=== PATIENT | male | born 1965 | race Caucasian/White ===

== ENCOUNTER 2016-11-09 16:27 | Inpatient (IN) | payer BC, OTHER ==
[2016-11-09] VITALS (10 sets, daily range): BP systolic 117–136; BP diastolic 75–93; PULSE 71–80; TEMP 36.4–36.7; O2SAT 91–96; BMI 41.0
[~2016-11-09] VITALS: Ht 170.2 cm; Wt 115.6 kg
[2016-11-09] MEDS ORDERED: NiCARDipine HCL INJ 2.5 MG/ML 10 ML AMP ONE (16:37)
[2016-11-09] MEDS ORDERED: MIDAZOLAM HCL 1 MG/ML 2ML VIAL ONE ×2 (16:38→17:21)
[2016-11-09] MEDS ORDERED: HEPARIN SOD (PORCINE) 1000 UNIT/ML 10 ML VIAL ONE ×2 (16:38→17:41)
[2016-11-09] MEDS ORDERED: FENTANYL CITRATE INJ 50 MCG/1 ML 2 ML VIAL ONE ×2 (16:38→17:21)
[2016-11-09] MEDS ORDERED: NITROGLYCERIN/D5W 100MCG/ML 20ML SYR ONE (16:40)
[2016-11-09] MEDS ORDERED: SODIUM CHLORIDE 0.9% 1000ML 1,000 ML IV STA (16:42)
[2016-11-09 16:48] LABS: BASO % 0.2 %; BASO ABS # 0.02 K/uL (0-0.2); COMPLETE YES; EOS % 0.7 %; HEMATOCRIT 48.2 % (42-52); IG% 0.3 %; LYMPH % 17.7 %; LYMPH ABS # 2.22 K/uL (1.2-3.4); MEAN CELL VOLUME 85.3 fL (80-100); MEAN CORPUSCULAR HEMOGLOBIN 29.6 pg (25-34); MEAN CORPUSCULAR HGB CONC 34.6 g/dl (32-36); MEAN PLATELET VOLUME 11.2 fL (7.4-10.4); MONO % 5.6 %; NEUT % 75.5 %; PLATELET COUNT 241 K/uL (130-400); RED BLOOD COUNT 5.65 M/uL (4.7-6.1); WHITE BLOOD COUNT 12.55 K/uL (4.8-10.8)
[2016-11-09] MEDS ORDERED: METO50TA16 PO (16:54)
[2016-11-09] MEDS ORDERED: LISI-725 PO (16:54)
[2016-11-09 16:56] LABS: PROTHROMBIN TIME (PATIENT) 10.3 SECONDS (9.0-12.0)
[2016-11-09 16:57] LABS: ISTAT CREATININE 0.9 mg/dl (0.6-1.3); ISTAT IONIZED CALCIUM 1.18 mmol/l (1.12-1.32)
[2016-11-09 17:04] LABS: BUN/CREATININE RATIO 16.2 (10-20); CALCIUM 9.4 mg/dl (8.5-10.1); CREATININE 1.1 mg/dl (0.60-1.40); MAGNESIUM 2.2 mg/dl (1.8-2.4); POTASSIUM 3.6 mmol/L (3.5-5.1)
[2016-11-09 17:07] LABS: CKMB/CK RATIO 1.2 (0-3.0)
[2016-11-09] MEDS ORDERED: LSN/2025 PO (17:12)
[2016-11-09] MEDS ORDERED: METO-217 PO (17:12)
[2016-11-09] MEDS ORDERED: METO1TAB69 PO (17:12)
[2016-11-09] MEDS ORDERED: ADENOSINE IV SOLN 3 MG/ML 20 ML VIAL ONE (17:15)
--- NOTE | 2016-11-09 17:34 | EMERGENCY ROOM VISIT NOTE ---
History Report prepared by Fito: Greer Plummer Under the Supervision of: Dr. Tigre Wan M.D. First contact with patient: 16:20 Stated Complaint: DIZZY, WEAKNESS, NEAR SYNCOPE History of Present Illness The patient is a 51 year old male who presents to the Emergency Room with complaints of worsening shortness of breath that occurred 3 days prior to arrival. 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 3 days ago he was mowing his lawn when he experienced shortness of breath, weak, lightheaded and had excess diaphoresis. The patient yesterday went to [facility] ED for dizziness and weakness. He had labs drawn and a chest X-Ray. He was discharged home. The patient woke up today with the same shortness of breath and weakness episode. He states that laying down improves his symptoms. The patient notes that standing and movement worsens his symptoms. He has been experiencing palpations today. The patient denies pressure in his chest, jaw pain or arm pain. He states that he has no pain with deep breaths. The patient has a history of hypertension and takes medication daily for it. He does notes a history of blood sugar issues but denies being on any medications for it. Pt denies LOC, headache, fevers, chills, visual changes, neck pain, nausea, vomiting, abdominal pain, back pain, melena, hematochezia, urinary symptoms, numbness, lymphadenopathy, rash, or other complaints. 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 A total of ten systems were reviewed and were otherwise negative. Past Medical & Surgical Medical Problems: (1) Hypertension Family History Family cardiac history Social History Smoking Status: Never Smoker Smokeless Tobacco Use: No Marital Status: Housing Status: lives with family Occupation Status: employed Current/Historical Medications Scheduled Hctz/Lisinopril (Lisinopril/Hctz 20/25 Mg), 1 TAB PO QAM Lisinopril (Zestril), 20 MG PO DAILY Metoprolol Succ (Toprol Xl) (Toprol-Xl ), 100 MG PO DAILY Metoprolol Succinate (Toprol Xl), 50 MG PO DAILY Metoprolol Tartrate (Lopressor) (Lopressor), 50 MG PO BID Physical Exam Vital Signs Date Time Temp Pulse Resp B/P (MAP) Pulse Ox O2 Delivery O2 Flow Rate FiO2 11/09/16 16:50 88 22 158/105 96 11/09/16 16:46 98 Nasal Cannula 3.0 11/09/16 16:37 80 11/09/16 16:31 93 Room Air 11/09/16 16:31 36.7 84 20 158/105 93 Room Air 11/09/16 16:31 93 Room Air Physical Exam GENERAL: Awake, alert, uncomfortable appearing, in no distress HENT: Normocephalic, atraumatic. Oropharynx unremarkable. EYES: Normal conjunctiva. Sclera non-icteric. NECK: Supple. No nuchal rigidity. FROM. No JVD. RESPIRATORY: Clear to auscultation. CARDIAC: Regular rate, normal rhythm. Extremities warm and well perfused. Pulses equal. ABDOMEN: Soft, non-distended. No tenderness to palpation. No rebound or guarding. No masses. RECTAL: Deferred. MUSCULOSKELETAL: Chest examination reveals no tenderness. The back is symmetrical on inspection without obvious abnormality. There is no CVA tenderness to palpation. No joint edema. LOWER EXTREMITIES: Calves are equal size bilaterally and non-tender. No edema. No discoloration. NEURO: Normal sensorium. No sensory or motor deficits noted. SKIN: No rash or jaundice noted. Medical Decision & Procedures Laboratory Results 11/09/16 16:37 Red Blood Count 5.65, Mean Corpuscular Volume 85.3, Mean Corpuscular Hemoglobin 29.6, Mean Corpuscular Hemoglobin Concent 34.6, Mean Platelet Volume 11.2, Neutrophils (%) (Auto) 75.5, Lymphocytes (%) (Auto) 17.7, Monocytes (%) (Auto) 5.6, Eosinophils (%) (Auto) 0.7, Basophils (%) (Auto) 0.2, Neutrophils # (Auto) 9.48, Lymphocytes # (Auto) 2.22, Monocytes # (Auto) 0.70, Eosinophils # (Auto) 0.09, Basophils # (Auto) 0.02 11/09/16 16:37 Test 11/09/16 16:37 11/09/16 16:40 11/09/16 16:42 White Blood Count 12.55 K/uL (4.8-10.8) Red Blood Count 5.65 M/uL (4.7-6.1) Hemoglobin 16.7 g/dL (14.0-18.0) Hematocrit 48.2 % (42-52) Mean Corpuscular Volume 85.3 fL (80-100) Mean Corpuscular Hemoglobin 29.6 pg (25-34) Mean Corpuscular Hemoglobin Concent 34.6 g/dl (32-36) Platelet Count 241 K/uL (130-400) Mean Platelet Volume 11.2 fL (7.4-10.4) Neutrophils (%) (Auto) 75.5 % Lymphocytes (%) (Auto) 17.7 % Monocytes (%) (Auto) 5.6 % Eosinophils (%) (Auto) 0.7 % Basophils (%) (Auto) 0.2 % Neutrophils # (Auto) 9.48 K/uL (1.4-6.5) Lymphocytes # (Auto) 2.22 K/uL (1.2-3.4) Monocytes # (Auto) 0.70 K/uL (0.11-0.59) Eosinophils # (Auto) 0.09 K/uL (0-0.5) Basophils # (Auto) 0.02 K/uL (0-0.2) RDW Standard Deviation 41.1 fL (36.4-46.3) RDW Coefficient of Variation 13.3 % (11.5-14.5) Immature Granulocyte % (Auto) 0.3 % Immature Granulocyte # (Auto) 0.04 K/uL (0.00-0.02) Prothrombin Time 10.3 SECONDS (9.0-12.0) Prothromb Time International Ratio 1.0 (0.9-1.1) Activated Partial Thromboplast Time 25.7 SECONDS (21.0-31.0) Partial Thromboplastin Ratio 1.0 Est Creatinine Clear Calc Drug Dose 102.4 ml/min Estimated GFR () 89.6 Estimated GFR (Non- 77.3 BUN/Creatinine Ratio 16.2 (10-20) Calcium Level 9.4 mg/dl (8.5-10.1) Magnesium Level 2.2 mg/dl (1.8-2.4) Total Bilirubin 0.8 mg/dl (0.2-1) Direct Bilirubin 0.2 mg/dl (0-0.2) Aspartate Amino Transf (AST/SGOT) 25 U/L (15-37) Alanine Aminotransferase (ALT/SGPT) 39 U/L (12-78) Alkaline Phosphatase 105 U/L (45-117) Total Creatine Kinase 130 U/L (39-308) Creatine Kinase MB 1.5 ng/ml (0.5-3.6) Creatine Kinase MB Ratio 1.2 (0-3.0) Total Protein 8.0 gm/dl (6.4-8.2) Albumin 3.7 gm/dl (3.4-5.0) Lipase 226 U/L (73-393) Bedside Troponin I 0.050 ng/ml (0-0.045) Bedside Hemoglobin 17.0 g/dl (14.0-18.0) Bedside Hematocrit 50 % (42-52) Bedside Sodium 138 mEq/L (135-144) Bedside Potassium 3.7 mEq/L (3.3-5.0) Bedside Chloride 99 mEq/L (101-112) Bedside Total CO2 25 mEq/l (24-31) Anion Gap 18.0 mmol/L (16-25) Bedside Blood Urea Nitrogen 19 mg/dl (7-18) Bedside Creatinine 0.9 mg/dl (0.6-1.3) Bedside Glucose (other) 211 mg/dl (70-99) Bedside Ionized Calcium (Helga) 1.18 mmol/l (1.12-1.32) Laboratory results reviewed by me ECG Indication: SOB/dyspnea Rate (beats per minute): 80 Rhythm: normal sinus Findings: T-wave inversion (Lateral), other (biphasic leads 2,3,4) ED Course 1629: The patient was evaluated in room B1. A complete history and physical exam was performed. 1636: Dr. Lopez came to evaluate the patient for heart alert. 1642: Sodium Chloride 1,000 ml @ 999 mls/hr IV 1650: The patient is being taking to the cardiac catheterization technician by Dr. Lopez - Cardiology at this time. 1652: Discussed the patient's case with Dr. Davion BERGERON. The patient will be evaluated for further treatment and disposition. 1722: I gave the patient's [facility] records to Dr. Davion BERGERON. Medical Decision Medication Reconciliation: I attest that I have personally reviewed the patient' s current medication list Blood pressure screening: Patient was found to have an elevated blood pressure and was referred to their primary doctor for recheck and further treatment. Prior records/ancillary studies reviewed. Records obtained from the [facility]. D-dimer was negative. The patient had mild hypokalemia. Patient had an unremarkable chest x-ray. Nursing notes reviewed and agree them. Additional history obtained from EMS. The patient's history was concerning for shortness of breath and ECG changes. Differential diagnosis: Etiologies such as cardiac ischemia, aortic dissection, pulmonary embolism, esophageal rupture, pneumonia, pneumothorax, musculoskeletal, infections, gastrointestinal, as well as others were entertained. Physical examination: Physical exam is as above. ER treatment provided: AsprinGiven prehospital Monitoring Oxygen Diagnostic interpretation: Prehospital ECG was concerning for ST elevation. I did obtain an ECG from the [facility] and the changes were new. That initiated a heart alert. ECG repeated here did reveal sinus rhythm however the patient has biphasic T waves and T-wave inversions anterolaterally. The labs revealed normal chemistries and a mildly elevated troponin by i-STAT and [id number]. Glucose was mildly elevated as well. The patient is a slight leukocytosis. Consultation: A consultation was placed with Dr. Lopez. He promptly arrived in the ER and evaluated the patient and agreed with the assessment of an acute coronary syndrome. The patient was taken emergently to the catheterization laboratory for cardiac intervention. Consults Time Called: 1629 Consulting Physician: Dr. Lopez - Cardiology Returned Call: 1636 Dr. Lopez came to evaluate the patient for heart alert. Additional Consults: Time Called: 1650 Consulted Physician: Dr. Ricardo - [facility] Returned Call: 1652 Additional Comments: Discussed the patient's case. The patient will be evaluated for further treatment and disposition. Impression Primary Impression: Stable burst fracture of eleventh thoracic vertebra Additional Impressions: Myocardial infarction SOB (shortness of breath) Critical Care I have personally spent greater than 30 minutes of critical care time in the direct management of this patient. This includes bedside care, interpretation of diagnostic studies, and testing, discussion with consultants, patient, and other required patient management activities. This 30 minutes is in excess of all separately billable procedures. Scribe Attestation The scribe's documentation has been prepared under my direction and personally reviewed by me in its entirety. I confirm that the note above accurately reflects all work, treatment, procedures, and medical decision making performed by me. Departure Information Dispostion Being Evaluated By Hospitalist Problem Qualifiers
--- NOTE | 2016-11-09 17:44 | History and Physical ---
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 At that time he reported his symptoms of shortness of breath with minimal activity started on 11/06. OSH patient admitted that he had stopped taking lisinopril and metoprolol times the past 6 weeks. A d-dimer was obtained which was slightly elevated= 118, chest x-ray was completed which showed no acute disease. EKG was obtained with signs of tachycardia RA=157 bpm, regular rhythm, normal [place] interval, QRS intervals normal, possible anterior CO although age indeterminate. The patient was transferred to our facility for cardiac catheterization. Patient is being admitted for unstable angina. Labs at our facility indicated troponin equal to 0.050 with EKG findings significant for anterior CO. Patient is now status post cardiac catheterization. There was no intervention required for the patient during cardiac catheterization. Patient was seen in the ICU. He reports he is currently feeling well, denies any chest pain or shortness of breath. He denies any other acute complaints. Past Medical/Surgical History Medical Problems: (1) Hypertension Status: Chronic Morbid obesity, BMI = 44.4 Sleep apnea Congenitally deaf due to rubella exposure in utero Family History Family cardiac history Social History Smoking Status: Never Smoker Alcohol Use: none Drug Use: none Allergies Coded Allergies: No Known Allergies (Unverified , 11/09/16) Home Medications Scheduled Hctz/Lisinopril (Lisinopril/Hctz 20/25 Mg), 1 TAB PO QAM Lisinopril (Zestril), 20 MG PO DAILY Metoprolol Succ (Toprol Xl) (Toprol-Xl ), 100 MG PO DAILY Metoprolol Succinate (Toprol Xl), 50 MG PO DAILY Metoprolol Tartrate (Lopressor) (Lopressor), 50 MG PO BID Review of Systems Constitutional: No fever, sweats or chills Eyes: No diplopia, no worsening or blurred vision ENT: normal hearing, no trouble swallowing Respiratory: No cough, sputum + dyspnea with exertion, does not wear supplemental O2 at baseline. Cardiovascular: + Palpitations & +shortness of breath with exertion for the past 3 days, denies tightness Abdomen: No pain, nausea, vomiting, diarrhea or constipation Musculoskeletal: No joint pain, calf pain, swelling Neurologic: No weakness, numbness/tingling, or balance problems Psychiatric: No anxiety or depression Skin: No rash or itch Physical Exam Vital Signs Date Time Temp Pulse Resp B/P (MAP) Pulse Ox O2 Delivery O2 Flow Rate FiO2 11/09/16 16:50 88 22 158/105 96 11/09/16 16:46 98 Nasal Cannula 3.0 11/09/16 16:37 80 11/09/16 16:31 93 Room Air 11/09/16 16:31 36.7 84 20 158/105 93 Room Air 11/09/16 16:31 93 Room Air General: awake, alert, no apparent distress, morbidly obese Head: Normocephalic, atraumatic ENT: PERRL, EOMI, no pharyngeal exudate, mucous membranes moist, poor dentition Chest: Clear to auscultation, on room air, no adventitious breath sounds Cardiac: Regular rate and rhythm, no murmur, no JVD, normal peripheral pulses, good capillary refill Abdominal: NABS x 4 quadrants, soft, nontender to palpation, no rebound, guarding or tenderness Extremities: Normal inspection, no peripheral edema or erythema, calfs nontender to palpation Psych: Normal mood and affect Neuro: AAO x 3, strength intact bilaterally and related 5/5, no motor deficits, speech is clear, no peripheral sensory deficits Diagnostics Laboratory Results Results Past 24 Hours Test 11/09/16 16:37 11/09/16 16:40 11/09/16 16:42 Range/Units White Blood Count 12.55 4.8-10.8 K/uL Red Blood Count 5.65 4.7-6.1 M/uL Hemoglobin 16.7 14.0-18.0 g/dL Hematocrit 48.2 42-52 % Mean Corpuscular Volume 85.3 80-100 fL Mean Corpuscular Hemoglobin 29.6 25-34 pg Mean Corpuscular Hemoglobin Concent 34.6 32-36 g/dl Platelet Count 241 130-400 K/uL Mean Platelet Volume 11.2 7.4-10.4 fL Neutrophils (%) (Auto) 75.5 % Lymphocytes (%) (Auto) 17.7 % Monocytes (%) (Auto) 5.6 % Eosinophils (%) (Auto) 0.7 % Basophils (%) (Auto) 0.2 % Neutrophils # (Auto) 9.48 1.4-6.5 K/uL Lymphocytes # (Auto) 2.22 1.2-3.4 K/uL Monocytes # (Auto) 0.70 0.11-0.59 K/uL Eosinophils # (Auto) 0.09 0-0.5 K/uL Basophils # (Auto) 0.02 0-0.2 K/uL RDW Standard Deviation 41.1 36.4-46.3 fL RDW Coefficient of Variation 13.3 11.5-14.5 % Immature Granulocyte % (Auto) 0.3 % Immature Granulocyte # (Auto) 0.04 0.00-0.02 K/uL Prothrombin Time 10.3 9.0-12.0 SECONDS Prothromb Time International Ratio 1.0 0.9-1.1 Activated Partial Thromboplast Time 25.7 21.0-31.0 SECONDS Partial Thromboplastin Ratio 1.0 Sodium Level 137 136-145 mmol/L Potassium Level 3.6 3.5-5.1 mmol/L Chloride Level 102 98-107 mmol/L Carbon Dioxide Level 26 21-32 mmol/L Anion Gap 9.0 18.0 16-25 mmol/L Blood Urea Nitrogen 18 7-18 mg/dl Creatinine 1.10 0.60-1.40 mg/dl Est Creatinine Clear Calc Drug Dose 102.4 ml/min Estimated GFR () 89.6 Estimated GFR (Non- 77.3 BUN/Creatinine Ratio 16.2 10-20 Random Glucose 201 70-99 mg/dl Calcium Level 9.4 8.5-10.1 mg/dl Magnesium Level 2.2 1.8-2.4 mg/dl Total Bilirubin 0.8 0.2-1 mg/dl Direct Bilirubin 0.2 0-0.2 mg/dl Aspartate Amino Transf (AST/SGOT) 25 15-37 U/L Alanine Aminotransferase (ALT/SGPT) 39 12-78 U/L Alkaline Phosphatase 105 45-117 U/L Total Creatine Kinase 130 39-308 U/L Creatine Kinase MB 1.5 0.5-3.6 ng/ml Creatine Kinase MB Ratio 1.2 0-3.0 Total Protein 8.0 6.4-8.2 gm/dl Albumin 3.7 3.4-5.0 gm/dl Lipase 226 73-393 U/L Bedside Troponin I 0.050 0-0.045 ng/ml Bedside Hemoglobin 17.0 14.0-18.0 g/dl Bedside Hematocrit 50 42-52 % Bedside Sodium 138 135-144 mEq/L Bedside Potassium 3.7 3.3-5.0 mEq/L Bedside Chloride 99 101-112 mEq/L Bedside Total CO2 25 24-31 mEq/l Bedside Blood Urea Nitrogen 19 7-18 mg/dl Bedside Creatinine 0.9 0.6-1.3 mg/dl Bedside Glucose (other) 211 70-99 mg/dl Bedside Ionized Calcium (Helga) 1.18 1.12-1.32 mmol/l Impression Assessment and Plan This is a 51-year-old male with past medical history of hypertension, obesity, urethral stricture requiring self catheterization twice daily, who presented initially to [facility] with the complaint of shortness of breath on . At that time he reported his symptoms of shortness of breath with minimal activity started on 11/06. SOB on exertion, palpitations Anterior myocardial infarction - Patient is being admitted to the ICU - Transferred from OSH to our facility for unstable angina. - Cardiology consultation - appreciate recs - Initial troponin equal to 0.050 with EKG findings significant for anterior CO. We'll trend cardiac enzymes 2 more sets, expect them to be high with cardiac catheterization so we'll watch for enzymes to peak and then trending downward. - We'll start the patient on metoprolol succinate 50 mg BID, lisinopril 5mg daily, Lasix 20 mg PO QAM - 2-D echo ordered - Spoke with cardiology who reported patient likely has a component of systolic and diastolic dysfunction as seen during cardiac cath. - Daily EKG - PT/OT consult and -Patient is from [place] so would not qualify for a nocturnal oximetry test. Hypertension - Meds adjusted as above Congenitally deaf due to rubella exposure in utero - Hearing aid in place Urethral stricture - Patient requires self-catheterization 2 times daily - Patient reports being noncompliant with his medications, discussion will need to be held with regarding compliance prior to discharge DVT prophylaxis: Teds, SCDs, sub q heparin CODE STATUS: Full code Disposition: Patient from home, discharge when medically stable, likely within 1 -2 days PA Physician Supervision Note: I interviewed and examined the patient. Discussed with Elizabeth Mejia PAC and agree with findings and plan as documented in the note. 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 He was taken emergently to the cardiac catheterization lab but was not found of any significant occlusion coronary arteries. He was found to have a depressed ejection fraction likely some of the symptomatology repolarization changes. The patient likely has undertreated hypertension. Patient is resting comfortably post catheterization in our intensive care unit Vital signs are reviewed was initially hypertensive but this improved Cardiac exam shows regular rate without murmur Lungs are clear Right wrist access point is in good condition with intact neurovascular sensation distally Likely chronic systolic and diastolic heart failure but suboptimal treatment of risk factors Continue metoprolol succinate 50 mg twice a day, lisinopril daily, aspirin daily , simvastatin, the indications are reviewed lifestyle modification. Concern and given a depressed ejection fraction Will start low-dose of furosemide in the morning and reevaluated by cardiology. Documented By: Niko Ricardo Level of Care Critical Care Resuscitation Status FULL RESUSCITATION VTE Prophylaxis Risk Level: Low Given or contraindicated: Unfractionated heparin SQ (Claudette, Maisha Stockings, SCD's
[2016-11-09] MEDS ORDERED: ACETAMINOPHEN 325 MG TAB PO PRN (17:45)
[2016-11-09] MEDS ORDERED: MoRPHine SULFATE 2 MG/ML CARP IV PRN (17:45)
[2016-11-09] MEDS ORDERED: SODIUM CHLORIDE 0.9% 1000ML 250 ML IV PRN (18:08)
[2016-11-09] MEDS ORDERED: ATROPINE SULFATE 0.1 MG/ML 5ML SYR IV PRN (18:15)
[2016-11-09] MEDS ORDERED: NITROGLYCERIN 0.4 MG SL PER TAB CHARGE SL PRN (18:15)
--- NOTE | 2016-11-09 18:23 | Procedure Note ---
Pre-Mod Sedation Assessment General Date of Moderate Sedation: Nov 09, 2016. Vital Signs: Vital Signs Past 12 Hours Date Time Temp Pulse Resp B/P (MAP) Pulse Ox O2 Delivery O2 Flow Rate FiO2 11/09/16 18:00 75 18 147/91 (109) 96 Nasal Cannula 12 11/09/16 17:45 76 18 137/83 (101) 98 Mask 10 11/09/16 16:50 88 22 158/105 96 11/09/16 16:46 98 Nasal Cannula 3.0 11/09/16 16:37 80 11/09/16 16:31 93 Room Air 11/09/16 16:31 36.7 84 20 158/105 93 Room Air 11/09/16 16:31 93 Room Air Review Cardiovascular: regular rate, rhythm, no edema, no gallop, no JVD, no murmur, normal peripheral pulses Abdomen: normal bowel sounds, non tender, soft, no organomegaly, no pulsatile mass Lungs: lungs clear Pre-Sedation Airway Assessment Oral Cavity: Dental Abnormalities Able to Visualize Vocal Cords: No Short Thick Neck: Yes Hx of Sleep Apnea: No Smoking Status: Never Smoker Mallampati Classification: Class III Procedure Planning Contraindications-for Mod Sed: None Yes Notes The planned sedation has been discussed with the patient and consent obtained. I have identified the patient, determined the appropriateness of sedation and have assessed the patient immediately prior to the procedure. All medicine(s) and interventions are by my order.
--- NOTE | 2016-11-09 18:24 | Procedure Note ---
Post-Mod Sedation Assessment General Date of Moderate Sedation Nov 09, 2016. Vital Signs: Vital Signs Past 12 Hours Date Time Temp Pulse Resp B/P (MAP) Pulse Ox O2 Delivery O2 Flow Rate FiO2 11/09/16 18:00 75 18 147/91 (109) 96 Nasal Cannula 12 11/09/16 17:45 76 18 137/83 (101) 98 Mask 10 11/09/16 16:50 88 22 158/105 96 11/09/16 16:46 98 Nasal Cannula 3.0 11/09/16 16:37 80 11/09/16 16:31 93 Room Air 11/09/16 16:31 36.7 84 20 158/105 93 Room Air 11/09/16 16:31 93 Room Air Review - Discharge Criteria Vital Signs Stable: Yes Alert/Oriented/Conversant: Yes Returned to Baseline Mental St: Yes Nausea Absent/Minimal: Yes Pain/Discomfort/Absent/Minimal: Yes Normal/Baseline Respirations: Yes Active Bleeding?: No Pt Received D/C Instructions: N/A Prescriptions Given: None Specific Proced. D/C Criteria Distal Pulses Present (Cardiac: Yes Groin site assessed-Card Cath: N/A Voided Prior To Discharge: N/A Discharged Patients Adult Escort/Transportation: N/A
[2016-11-09] MEDS ORDERED: PATIENT'S ALLERGY INFO NEEDS ENTERED SCH (18:45)
--- NOTE | 2016-11-09 19:31 | Cardiac Catheterization ---
Procedure Note Procedure Date Nov 09, 2016. Pre-Procedure Diagnosis STEMI AUC Score 9 Post-Procedure Diagnosis Moderate CAD Procedure(s) Performed Coronary Angiography, Left Heart Cath, LV Angiography, Fractional Flow [place] [facility] Donor Coordinator Dr. Lopez Director Of Surgery(s) Alyssa Cortez RTChasity Estimated Blood Loss 20 ml Medication(s) Fentanyl, Heparin, Nicardipine, Nitroglycerin, Versed, Lidocaine 1%, Adenosine Summary of Findings Clinical Indications: Acute anterior infarct. Patient with history off longstanding hypertension, dyslipidemia, and hyperglycemia. Noncompliance with medications and low-sodium diet. Three day history of orthopnea, dyspnea with exertion, and dyspnea at rest. Also episodes of palpitations sensed as a rapid heart rate lasting for up to 1 minute. He called EMS today because of complaints of dyspnea at rest as well as lightheadedness, near-syncope, and impending sense of doom. An electrocardiogram performed in the field revealed ST segment elevations V2-V4, inverted T-waves V2-V6. A repeat electrocardiogram performed in the emergency department showed similar findings. He had no complaints of chest pain. He was hypertensive. Physical exam revealed no evidence of congestive heart failure. Because of his earlier symptoms an abnormal electrocardiogram it was felt that an acute anterior myocardial infarction could not be excluded. It was recommended to the patient that he undergo emergency cardiac catheterization and possible coronary intervention if indicated. The procedure, risks, benefits, and alternatives of cardiac catheterization and coronary intervention were discussed with him. Consented to the procedure. He was then brought to the cardiac catheterization laboratory. Catheterization site: 6 Togolese glide sheath right radial artery. Catheters: 6 [place]ese brachial 3.5 diagnostic catheter for right and left coronary angiography. 5 [place]ese pigtail catheter for left heart catheterization and left ventricular angiography. 6 [place]ogolese EBU 3.75 guide catheter for performance of FFR of mid LAD stenosis. FFR protocol: After the pressure wire was calibrated and normalized it was advanced into the LAD with the transducer past the mid LAD stenosis. IFR was measured. Intravenous adenosine was then given a dose of 180 micrograms/ kilogram per minute for 2 minutes. FFR measurements were recorded. Follow-up angiography was then performed with the pressure wire in place and then withdrawn. Left ventricular angiography and left heart catheterization were performed following performance of FFR of the LAD. Hemostasis: Terumo TR band. Complications: None. Findings: Fluoroscopy did not reveal any significant coronary calcifications. The coronary circulation was right dominant. The left main coronary artery was a large caliber vessel without obstructive disease. It gave rise to medium caliber left anterior descending and left circumflex coronary arteries. The proximal LAD had a long 20 percent stenosis. The LAD then gave rise to a very small caliber and short 1st diagonal artery. It then gave rise to a long small caliber 2nd diagonal artery. The 2nd diagonal had 10-20 percent proximal and mid segment stenoses. Immediately following this diagonal the mid LAD had a 30- 50 percent stenosis. In the BENGALI caudal view the stenosis had a lucent appearance. The remainder of the mid and distal LAD had only minor luminal irregularities. The distal LAD terminated at the apex of the heart as a very small caliber vessel. IFR of the mid LAD stenosis was 0.91. FFR of the mid LAD stenosis following administration of intravenous adenosine was 0.85. Follow -up angiography after performance of FFR revealed no evidence of dissection, thrombus, perforation, or distal embolic event. LAD GOLD 3 flow prior to FFR. LAD GOLD 3 flow following FFR. The proximal circumflex had 0-10 percent stenosis. The early mid circumflex gave rise to a bifurcating medium caliber marginal artery which had a 10-20 percent proximal stenosis. Following the origin of the marginal the circumflex terminated in the atrioventricular groove as a small caliber vessel. The right coronary artery was a large caliber vessel. 0-10 percent stenoses in proximal, mid, and distal RCA. Distal RCA gave rise to a medium caliber posterior descending artery. The PDA had a 20 percent mid segment stenosis. the distal RCA gave rise to a long medium caliber bifurcating posterolateral artery. This vessel had a 20 percent stenosis prior to the bifurcation. Left ventricular angiography performed from the 30 degree right anterior oblique projection revealed global hypokinesis of all segments of the left ventricle. No mitral regurgitation. Calculated LV ejection fraction 35 percent. LV angiography had 1st been attempted with a hand injection of contrast dye. This provided inadequate visualization of the left ventricle. LV angiography was then repeated with a power injection of contrast dye. The left ventricular end-diastolic pressure was elevated prior to and following LV angiography. Following the administration of intra arterial nitroglycerin the left ventricular end diastolic pressure decreased. Recommendations and plan: There is no indication for a coronary revascularization procedure. He had GOLD 3 flow in all vessels. FFR of the mid LAD stenosis showed that it was not physiologically significant. Based on a review of his symptoms, medical history, hemodynamics, and left ventricular angiography it is likely that the patient's symptoms in regards to his dyspnea are secondary to acute combined systolic and diastolic heart failure. Suspect he has significant left ventricular hypertrophy. This could be accounting for his electrocardiographic changes. He is also experiencing palpitations. With his decreased LV ejection fraction he would be of increased risk for ventricular arrhythmias. He is also at increased risk for atrial fibrillation. He will be admitted to a monitored bed. Monitor heart rhythm. Serial electrocardiograms and cardiac enzymes. Echocardiography to further assess left ventricular systolic function. Assess left ventricular wall thickness and diastolic function. Assess valvular function. In regards to cardiac medical therapy recommend aspirin, beta-jorge, BENNY inhibitor, diuretic, and statin. Assess hemoglobin A1c ,TSH, and lipid profile. Also for now would use topical nitrates to help decrease ventricular preload. Hemodynamics Rest Ao: 118/82/99 mm Hg Final Ao: 112/75/94 mm Hg LV: 116/27 mm Hg post coronary angiography. 118/21 mm Hg post LV angiography and intra arterial nitroglycerin. Recommendations Medical therapy and/or Counseling Specimens None Radiation Exposure (mGy) 3498 Contrast (mls) 176 ml Visipaque Fluids (cc crystalloids) 100 Drains none Anesthesia Intravenous Versed and fentanyl. Lidocaine 1 percent for local anesthesia. Procedural Complication(s) None Disposition ICU ACC Data Cardiac Status Clinical evaluation leading to the procedure CAD Presntation: STEMI Anginal Classification: CCS IV Heart Failure: NYHA Class: CCS IV Cardiogenic Shock w/in 24Hrs: No Cardiac Arrest w/in 24Hrs: No Imaging studies past 6 months: No Stress studies past 6 months: No Standard Exercise Stress Test: No Stress Echocardiogram: No Stress Testing w/SPECT MPI: No Cardiac CTA: Yes Coronary Anatomy Dominant: Right Left Main (% Stenosis): Normal LAD (% Stenosis): Proximal (20), Mid (30-50), Distal (0-10) D1 (% Stenosis): Normal D2 (% Stenosis): Proximal (10-20), Mid (10-20) Circumflex (% Stenosis): Proximal (0-10) OM1 (% Stenosis): Proximal (10-20) RCA (% Stenosis): Proximal (0-10), Mid (0-10), Distal (0-10) R PDA (% Stenosis): Mid (20) R PL1 (% Stenosis): Mid (20) Left Ventricular Angiography EF (%): 35 Wall Motion: Inferior (Hypokinetic), Apical (Hypokinetic), Anterior ( Hypokinetic) Mitral Regurgitation: None Diagnostic Physician's Name: Salvador Lopez M.D. Status: Emergency Closure Device Percutaneous Entry Location: Radial Closure Device: Radial Band Recommendations: Medical therapy and/or Counseling Lesion Segment Name: mid LAD Stenosis Prior to Rx (%): 50 FFR: Yes Ratio: greater than 0.75% (0.85) Pre-Procedure GOLD Flow: 3 Previously Treated Lesion: No Lesion Complexity: Non-High/Non-C Lesion Length (mm): 5 Thrombus Present: No Bifurcation Lesion: Yes Guidewire Across Lesion: Yes Guidewire: Stenosis Post-Procedure (%): 50 Post-Procedure GOLD Flow: 3 Device(s) Deployed: No Intraprocedure Events Significant Dissection: No Perforation: No
--- NOTE | 2016-11-09 19:45 | DIAGNOSTIC IMAGING REPORT ---
CHEST ONE VIEW PORTABLE CLINICAL HISTORY: PORTABLE dyspnea COMPARISON STUDY: No previous studies for comparison. FINDINGS: Moderate cardiac megaly. Mild prominence pulmonary vasculature. Diaphragms smooth. IMPRESSION: Early congestive heart failure Electronically signed by: Clinton Hughes M.D. 11/09/2016 7:44 PM Dictated Date/Time: 11/09/2016 7:43 PM
[2016-11-09] MEDS: NITROGLYCERIN OINT 2% 1GM PACKET EXT SCH (20:02)
[2016-11-09] MEDS: METOPROLOL SUCC 50MG EXT REL TAB PO SCH (20:05)
[2016-11-09] MEDS ORDERED: GLUCOSE 10 TABS/TUBE PO PRN (20:15)
[2016-11-09] MEDS ORDERED: GLUCAGON FOR INJ 1 MG VIAL SQ PRN (20:15)
[2016-11-09] MEDS ORDERED: DEXTROSE 50% 50 ML SYR IV PRN (20:15)
[2016-11-09] MEDS ORDERED: GLUCOSE 40% GEL 15 GM TUBE PO PRN (20:15)
[2016-11-09] MEDS ORDERED: SIMVASTATIN 40 MG TAB PO SCH (21:00)
[2016-11-09] MEDS: INSULIN ASPART 100 UNITS/ML 3 ML PEN SC SCH (21:03)
[2016-11-10] VITALS (12 sets, daily range): BP systolic 101–161; BP diastolic 63–94; PULSE 61–80; TEMP 36.4–36.6; O2SAT 91–98; BMI 39.8
[2016-11-10] MEDS: NITROGLYCERIN OINT 2% 1GM PACKET EXT SCH ×4 (00:16→17:43)
[2016-11-10 05:45] LABS: BASO % 0.2 %; BASO ABS # 0.02 K/uL (0-0.2); COMPLETE YES; EOS % 1.1 %; HEMATOCRIT 41.8 % (42-52); IG% 0.5 %; LYMPH % 29.5 %; LYMPH ABS # 2.58 K/uL (1.2-3.4); MEAN CELL VOLUME 86.7 fL (80-100); MEAN CORPUSCULAR HGB CONC 33.5 g/dl (32-36); MEAN PLATELET VOLUME 11.1 fL (7.4-10.4); MONO % 6.6 %; NEUT % 62.1 %; PLATELET COUNT 192 K/uL (130-400); RED BLOOD COUNT 4.82 M/uL (4.7-6.1); WHITE BLOOD COUNT 8.74 K/uL (4.8-10.8)
[2016-11-10 06:15] LABS: BUN/CREATININE RATIO 17.3 (10-20); CALCIUM 8.6 mg/dl (8.5-10.1); CREATININE 1.2 mg/dl (0.60-1.40); MAGNESIUM 2.2 mg/dl (1.8-2.4); POTASSIUM 3.5 mmol/L (3.5-5.1)
[2016-11-10 06:31] LABS: ESTIMATED AVERAGE GLUCOSE 260 mg/dl; HA1C FLAG Normal (Normal)
[2016-11-10] MEDS: INSULIN ASPART 100 UNITS/ML 3 ML PEN SC SCH ×4 (06:33→20:38)
[2016-11-10] MEDS ORDERED: LISINOPRIL 5 MG TAB PO SCH (09:00)
[2016-11-10] MEDS ORDERED: ASPIRIN 81 MG ECTAB PO SCH (09:00)
[2016-11-10] MEDS: PANTOprazole SOD 40 MG TAB PO SCH (09:03)
[2016-11-10] MEDS: FUROSEMIDE 20 MG TAB PO SCH (09:03)
[2016-11-10] MEDS: METOPROLOL SUCC 50MG EXT REL TAB PO SCH ×2 (09:03→20:40)
[2016-11-10] MEDS: ASPIRIN 81 MG ECTAB PO SCH (09:04)
[2016-11-10] MEDS ORDERED: PERFLUTREN LIPID MICROSPHERE (DEFINITY) IV ONE (09:05)
[2016-11-10] MEDS ORDERED: POTASSIUM CHLORIDE 10 MEQ TABCR PO STA (09:36)
[2016-11-10 09:38] LABS: URINE APPEARANCE CLOUDY (CLEAR); URINE BILIRUBIN NEG (NEG); URINE COLOR DK YELLOW; URINE NITRITE NEG (NEG); URINE PH 5.5 (4.5-7.5); URINE SPECIFIC GRAVITY 1.039 (1.000-1.030); UROBILINOGEN NEG (NEG)
[2016-11-10 09:42] LABS: REVIEW REQ? YES
[2016-11-10 09:43] LABS: MANUAL MICROSCOPIC REQUIRED? NO
--- NOTE | 2016-11-10 09:48 | Critical Care Progress Note ---
Critical Care Progress Note Date of Service Nov 10, 2016. Critical Care Progress Note Patient discussed on rounds. 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 He is found to be a type 2 diabetic with an A1c of 10.7% Today he feels well, denies any pain. He had an echocardiogram this morning, and is followed by Cardiology. He was placed in the ICU for monitoring overnight. He will be transferred this AM to telemetry. His care was discussed with the hospitalist team. A full consult will not be performed as he had no critical care needs. Please do not hesitate to contact us with any questions or concerns. Medical Instrument Technician Addendum: I was not called about this patient - unclear to me why he was admitted to the ICU s/p cardiac cath early evening yesterday. He as been hemodynamically stable. He is being transferred to telemetry and I will not see him or do a formal consult. Please do not bill him for a critical care consult. Resident Tracking Resident Involvement: Resident Care Provided Care Provided: Adult Hospital Medicine
--- NOTE | 2016-11-10 10:32 | ECHOCARDIOGRAM REPORT ---
*NOTICE TO RECEIVING CONSTITUTION PARTY AGENCY This information is strictly Confidential and protected under [place] law. [place] law prohibits you from making any further disclosure of this information unless further disclosure is expressly permitted by the written consent of the person to whom it pertains or is authorized by law. A general authorization for the release of medical or other information is not sufficient for this purpose. Hospital accepts no responsibility if the information is made available to any other person, INCLUDING THE PATIENT. Interpretation Summary * Name: POOJA MORENO Study Date: 11/10/2016 07:34 AM BP: 109/69 mmHg * Patient Location: [facility] [place] HR: 66 * : 1965 (M/d/yyyy) Gender: Male Height: 67 in * Age: 51 yrs Ethnicity: [place] Weight: 283 lb * Referring Physician: Elizabeth Mejia PA-C * Performed By: Elizabeth Barfield RDCS * * Reason For Study: AMI * BSA: 2.3 m2 * Moderate left ventricular systolic dysfunction. * Severe concentric left ventricular hypertrophy. * Left ventricular diastolic dysfunction. * Moderate left atrial dilatation. * Trace pulmonic and tricuspid regurgitation. * Mild mitral regurgitation. * Mild pulmonary hypertension. * Small pericardial effusion without tamponade. * -- Conclusions -- * There is no diastolic compression of the right ventricle to suggest cardiac tamponade. Procedure Details * A complete two-dimensional transthoracic echocardiogram was performed (2D, M-mode, Doppler and color flow Doppler). * A contrast injection of Definity was performed to improve assessment of LV function. * Contrast was injected into an intravenous site in the left arm. * One vial of Definity ultrasound contrast was diluted in normal saline to a total volume of 10 ml. A total of '2' ml of solution was administered during imaging. * Lot # [id number] of Definity utilized for procedure. * Expiration date NOV 30. * The attending nurse who injected the contrast agent was Yulissa Larose RN. Left Ventricle * The left ventricle is normal in size. * There is severe concentric left ventricular hypertrophy. * Ejection Fraction = 30-35%. * Diastolic dysfunction, Grade II (pseudonormalization pattern). * There is moderate global hypokinesis of the left ventricle. Right Ventricle * The right ventricle is normal in size and function. Atria * The left atrium is moderately dilated. * Right atrial size is normal. * No ASD detected; PFO is not assessed. Mitral Valve * The mitral valve is normal. * There is no mitral valve stenosis. * There is mild mitral regurgitation. Tricuspid Valve * The tricuspid valve is normal. * There is no tricuspid stenosis. * There is trace tricuspid regurgitation. * Right ventricular systolic pressure is elevated at 30-40mmHg. Aortic Valve * The aortic valve is trileaflet. * The aortic valve opens well. * Aortic stenosis is absent. * No aortic regurgitation is present. Pulmonic Valve * The pulmonic valve is not well seen, but is grossly normal. * There is no pulmonic valvular stenosis. * Trace pulmonic valvular regurgitation. Great Vessels * The aortic root is normal size. Pericardium/Pleural * Small pericardial effusion. * There is no diastolic compression of the right ventricle to suggest cardiac tamponade. * There are no echocardiographic indications of cardiac tamponade. Great Vessels * Normal inferior vena cava diameter and respiratory variation suggests normal central venous pressure. MMode 2D Measurements and Calculations IVSd 1.9 cm LVIDd 5.2 cm LVIDs 4.4 cm LVPWd 1.9 cm IVS/LVPW 0.99 FS 15.3 % EDV(Teich) 129.6 ml ESV(Teich) 88.0 ml EF(Teich) 32.1 % EDV(cubed) 140.7 ml ESV(cubed) 85.5 ml EF(cubed) 39.2 % LV mass(C)d 496.9 grams LV mass(C)dI 212.0 grams/m\S\2 CO(Teich) 3.2 l/min CI(Teich) 1.3 l/min/m\S\2 SV(Teich) 41.6 ml SI(Teich) 17.8 ml/m\S\2 CO(cubed) 4.2 l/min CI(cubed) 1.8 l/min/m\S\2 SV(cubed) 55.2 ml SI(cubed) 23.5 ml/m\S\2 Ao root diam 3.2 cm Ao root area 8.1 cm\S\2 ACS 2.3 cm LA dimension 4.9 cm asc Aorta Diam 3.2 cm LA/Ao 1.5 LVOT diam 2.0 cm LVOT area 3.3 cm\S\2 LVAd ap4 52.7 cm\S\2 LVLd ap4 10.1 cm EDV(MOD-sp4) 226.0 ml LVAs ap4 40.2 cm\S\2 LVLs ap4 8.8 cm ESV(MOD-sp4) 148.0 ml EF(MOD-sp4) 34.5 % LVAd ap2 40.7 cm\S\2 LVLd ap2 8.9 cm EDV(MOD-sp2) 153.0 ml LVAs ap2 37.2 cm\S\2 LVLs ap2 9.7 cm CO(MOD-sp4) 5.9 l/min CI(MOD-sp4) 2.5 l/min/m\S\2 SV(MOD-sp4) 78.0 ml SI(MOD-sp4) 33.3 ml/m\S\2 Doppler Measurements and Calculations MV E max magdiel 110.6 cm/sec MV A max magdiel 61.1 cm/sec MV E/A 1.8 MV dec time 0.18 sec Ao V2 max 110.1 cm/sec Ao max PG 4.9 mmHg Ao max PG (full) 2.7 mmHg CRISTIANA(V,A) 2.2 cm\S\2 CRISTIANA(V,D) 2.2 cm\S\2 LV V1 max PG 2.1 mmHg LV V1 max 72.8 cm/sec MR max magdiel 509.5 cm/sec MR max PG 103.9 mmHg MR mean magdiel 383.2 cm/sec MR mean PG 67.9 mmHg MR VTI 153.8 cm PA V2 max 63.4 cm/sec PA max PG 1.6 mmHg PA acc slope 335.1 cm/sec\S\2 PA acc time 0.13 sec TR max magdiel 289.9 cm/sec PA pr(Accel) 20.4 mmHg
[2016-11-10] MEDS: ACETAMINOPHEN 325 MG TAB PO PRN (11:13)
--- NOTE | 2016-11-10 11:33 | Hospitalist Progress Note ---
Hospitalist Progress Note Date of Service Nov 10, 2016. Subjective Pt evaluation today including: conversation w/ patient, conversation w/ family , physical exam, chart review, lab review, review of studies, review of inpatient medication list Patient seen and evaluated. Admitted yesterday for acute onset of SOB mostly BAL x 4 days. 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 He is S/P catheterization without intervention on 11/09 Echo performed today which reveals EF 30-35% and grade II diastolic dysfunction. A1c also 10.7. He reports being a pre-diabetic x 1 year and states he watches his carb intake. He has never been on diabetic medication in the past. He was researching medications and was concerned for metformin and its side effects. Was asking about using broccoli sprout extract as his research reports this is "same as metformin". Expressed limited knowledge in homeopathic approaches and could not recommend this as a suitable treatment modality. 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) Respiratory: + dyspnea on exertion, + dyspnea at rest (improving) Cardiovascular: No chest pain, No palpitations Abdomen: No pain, No nausea, No vomiting, No diarrhea, No constipation Musculoskeletal: No swelling, No calf pain Male : + problem reported (ureteral stricture and self-caths BID) Medications Current Inpatient Medications Medications (Trade) Dose Ordered Sig/Brianda Route Start Time Stop Time Status Last Admin Dose Admin Nitroglycerin (Nitroglycerin 2% Oint) 1 inch Q6 EXT 11/09/16 19:15 12/09/16 19:14 11/10/16 06:20 1 INCH Pantoprazole Sodium (Protonix Tab) 40 mg DAILY PO 11/10/16 09:00 12/10/16 08:59 11/10/16 09:03 40 MG Morphine Sulfate (MoRPHine SULFATE INJ) 2 mg Q2H PRN IV 11/09/16 17:45 11/23/16 17:44 Simvastatin (Zocor Tab) 80 mg HS PO 11/09/16 21:00 12/09/16 20:59 11/09/16 20:05 80 MG Nitroglycerin (Nitrostat Tab) 0.4 mg Q5M PRN SL 11/09/16 18:15 12/09/16 18:14 Acetaminophen (Tylenol Tab) 650 mg Q4H PRN PO 11/09/16 18:15 12/09/16 18:14 11/10/16 11:13 650 MG Sodium Chloride 250 ml @ 999 mls/hr Q16M PRN IV 11/09/16 18:08 12/09/16 18:07 Atropine Sulfate (Atropine Sulfate 0.1MG/Ml Inj) 0.6 mg PRN PRN IV 11/09/16 18:15 12/09/16 18:14 Aspirin (Ecotrin Tab) 81 mg QAM PO 11/10/16 09:00 12/10/16 08:59 11/10/16 09:04 81 MG Metoprolol Succinate (Toprol Xl Tab) 50 mg BID PO 11/09/16 21:00 12/09/16 20:59 11/10/16 09:03 50 MG Lisinopril (Zestril Tab) 5 mg QAM PO 11/10/16 09:00 12/10/16 08:59 11/10/16 09:04 5 MG Furosemide (Lasix Tab) 20 mg QAM PO 11/10/16 09:00 12/10/16 08:59 11/10/16 09:03 20 MG Insulin Aspart (novoLOG ASPART) SLIDING SCALE PARAMETER ACHS SC 11/09/16 21:00 12/09/16 20:59 11/09/16 21:03 2 UNITS Glucose (Glucose 40% Gel) 15-30 GRAMS 15 GRAMS... UD PRN PO 11/09/16 20:15 12/09/16 20:14 Glucose (Glucose Chew Tab) 4-8 Tablets 4 Tabl... UD PRN PO 11/09/16 20:15 12/09/16 20:14 Dextrose (Dextrose 50% 50ML Syringe) 25-50ML OF 50% DW IV FOR... UD PRN IV 11/09/16 20:15 12/09/16 20:14 Glucagon (Glucagon Inj) 1 mg UD PRN SQ 11/09/16 20:15 12/09/16 20:14 Objective Vital Signs Date Time Temp Pulse Resp B/P (MAP) Pulse Ox O2 Delivery O2 Flow Rate FiO2 11/10/16 10:00 36.6 80 13 131/88 (102) 91 Nasal Cannula 2.0 11/10/16 08:00 36.6 75 13 161/94 (116) 96 Nasal Cannula 2.0 11/10/16 08:00 97 Room Air 2.0 11/10/16 06:01 66 12 109/69 (82) 94 Nasal Cannula 2.0 11/10/16 04:01 36.5 65 15 101/69 (80) 95 Nasal Cannula 3.0 11/10/16 04:00 Nasal Cannula 3.0 11/10/16 02:01 64 12 108/67 (81) 93 Nasal Cannula 3.0 11/10/16 00:01 36.5 61 17 104/63 (77) 93 Nasal Cannula 3.0 11/10/16 00:01 Nasal Cannula 3.0 11/09/16 22:01 73 18 121/75 (90) 94 Nasal Cannula 3.0 11/09/16 21:01 73 19 120/81 (94) 96 Nasal Cannula 3.0 11/09/16 20:31 71 15 117/75 (89) 95 Nasal Cannula 3.0 11/09/16 20:01 36.4 76 14 120/77 (91) 96 Nasal Cannula 3.0 11/09/16 20:00 Nasal Cannula 3.0 11/09/16 19:30 76 19 125/81 (96) 95 Nasal Cannula 3.0 11/09/16 19:21 75 20 130/87 (101) 94 Nasal Cannula 3.0 11/09/16 19:11 80 18 133/88 (103) 96 Nasal Cannula 3.0 11/09/16 19:01 75 19 128/93 (105) 95 Nasal Cannula 3.0 11/09/16 18:51 71 16 119/80 (93) 95 Nasal Cannula 3.0 11/09/16 18:32 36.7 75 16 136/92 91 Nasal Cannula 2.0 11/09/16 18:00 75 18 147/91 (109) 96 Nasal Cannula 12 11/09/16 17:45 76 18 137/83 (101) 98 Mask 10 11/09/16 16:50 88 22 158/105 96 11/09/16 16:46 98 Nasal Cannula 3.0 11/09/16 16:37 80 11/09/16 16:31 93 Room Air 11/09/16 16:31 36.7 84 20 158/105 93 Room Air 11/09/16 16:31 93 Room Air Physical Exam General Appearance: WD/WN, no apparent distress, + obese Eyes: sclerae normal ENT: + pertinent finding (hearing adequate with hearing aids present) Neck: supple, no JVD, trachea midline Respiratory/Chest: lungs clear, normal breath sounds, no respiratory distress, no accessory muscle use Cardiovascular: regular rate, rhythm, no gallop, no murmur Abdomen: normal bowel sounds, non tender, soft Extremities: no pedal edema, no calf tenderness Neurologic/Psychiatric: alert, oriented x 3 Skin: normal color Laboratory Results Last 24 Hours Test 11/09/16 16:37 11/09/16 16:40 11/09/16 16:42 11/09/16 17:18 White Blood Count 12.55 K/uL Red Blood Count 5.65 M/uL Hemoglobin 16.7 g/dL Hematocrit 48.2 % Mean Corpuscular Volume 85.3 fL Mean Corpuscular Hemoglobin 29.6 pg Mean Corpuscular Hemoglobin Concent 34.6 g/dl Platelet Count 241 K/uL Mean Platelet Volume 11.2 fL Neutrophils (%) (Auto) 75.5 % Lymphocytes (%) (Auto) 17.7 % Monocytes (%) (Auto) 5.6 % Eosinophils (%) (Auto) 0.7 % Basophils (%) (Auto) 0.2 % Neutrophils # (Auto) 9.48 K/uL Lymphocytes # (Auto) 2.22 K/uL Monocytes # (Auto) 0.70 K/uL Eosinophils # (Auto) 0.09 K/uL Basophils # (Auto) 0.02 K/uL RDW Standard Deviation 41.1 fL RDW Coefficient of Variation 13.3 % Immature Granulocyte % (Auto) 0.3 % Immature Granulocyte # (Auto) 0.04 K/uL Prothrombin Time 10.3 SECONDS Prothromb Time International Ratio 1.0 Activated Partial Thromboplast Time 25.7 SECONDS Partial Thromboplastin Ratio 1.0 Sodium Level 137 mmol/L Potassium Level 3.6 mmol/L Chloride Level 102 mmol/L Carbon Dioxide Level 26 mmol/L Anion Gap 9.0 mmol/L 18.0 mmol/L Blood Urea Nitrogen 18 mg/dl Creatinine 1.10 mg/dl Est Creatinine Clear Calc Drug Dose 102.4 ml/min Estimated GFR () 89.6 Estimated GFR (Non- 77.3 BUN/Creatinine Ratio 16.2 Random Glucose 201 mg/dl Estimated Average Glucose 260 mg/dl Hemoglobin A1c 10.7 % Calcium Level 9.4 mg/dl Magnesium Level 2.2 mg/dl Total Bilirubin 0.8 mg/dl Direct Bilirubin 0.2 mg/dl Aspartate Amino Transf (AST/SGOT) 25 U/L Alanine Aminotransferase (ALT/SGPT) 39 U/L Alkaline Phosphatase 105 U/L Total Creatine Kinase 130 U/L Creatine Kinase MB 1.5 ng/ml Creatine Kinase MB Ratio 1.2 Total Protein 8.0 gm/dl Albumin 3.7 gm/dl Lipase 226 U/L Bedside Troponin I 0.050 ng/ml Bedside Hemoglobin 17.0 g/dl Bedside Hematocrit 50 % Bedside Sodium 138 mEq/L Bedside Potassium 3.7 mEq/L Bedside Chloride 99 mEq/L Bedside Total CO2 25 mEq/l Bedside Blood Urea Nitrogen 19 mg/dl Bedside Creatinine 0.9 mg/dl Bedside Glucose (other) 211 mg/dl Bedside Ionized Calcium (Helga) 1.18 mmol/l Kaolin Activated Coagulation Time 345 SECONDS Test 11/09/16 20:57 11/10/16 00:18 11/10/16 01:10 11/10/16 05:35 Bedside Glucose 218 mg/dl 190 mg/dl Creatine Kinase MB 0.8 ng/ml Creatine Kinase MB Ratio Troponin I 0.211 ng/ml White Blood Count 8.74 K/uL Red Blood Count 4.82 M/uL Hemoglobin 14.0 g/dL Hematocrit 41.8 % Mean Corpuscular Volume 86.7 fL Mean Corpuscular Hemoglobin 29.0 pg Mean Corpuscular Hemoglobin Concent 33.5 g/dl Platelet Count 192 K/uL Mean Platelet Volume 11.1 fL Neutrophils (%) (Auto) 62.1 % Lymphocytes (%) (Auto) 29.5 % Monocytes (%) (Auto) 6.6 % Eosinophils (%) (Auto) 1.1 % Basophils (%) (Auto) 0.2 % Neutrophils # (Auto) 5.42 K/uL Lymphocytes # (Auto) 2.58 K/uL Monocytes # (Auto) 0.58 K/uL Eosinophils # (Auto) 0.10 K/uL Basophils # (Auto) 0.02 K/uL RDW Standard Deviation 43.0 fL RDW Coefficient of Variation 13.6 % Immature Granulocyte % (Auto) 0.5 % Immature Granulocyte # (Auto) 0.04 K/uL Sodium Level 142 mmol/L Potassium Level 3.5 mmol/L Chloride Level 105 mmol/L Carbon Dioxide Level 32 mmol/L Anion Gap 5.0 mmol/L Blood Urea Nitrogen 21 mg/dl Creatinine 1.20 mg/dl Est Creatinine Clear Calc Drug Dose 89.8 ml/min Estimated GFR () 80.7 Estimated GFR (Non- 69.6 BUN/Creatinine Ratio 17.3 Random Glucose 160 mg/dl Calcium Level 8.6 mg/dl Phosphorus Level 4.0 mg/dl Magnesium Level 2.2 mg/dl Test 11/10/16 06:23 11/10/16 09:00 11/10/16 09:32 11/10/16 11:09 Bedside Glucose 165 mg/dl 216 mg/dl Urine Color DK YELLOW Urine Appearance CLOUDY Urine pH 5.5 Urine Specific [place] 1.039 Urine Protein 2+ Urine Glucose (UA) NEG Urine Ketones TRACE Urine Occult Blood NEG Urine Nitrite NEG Urine Bilirubin NEG Urine Urobilinogen NEG Urine Leukocyte Esterase NEG Urine WBC (Auto) 1-5 /hpf Urine RBC (Auto) 0-4 /hpf Urine Hyaline Casts (Auto) 1-5 /lpf Urine Epithelial Cells (Auto) 10-20 /lpf Urine Bacteria (Auto) NEG Urine Crystals CALCIUM OXALATE Stool Occult Blood NEGATIVE Creatine Kinase MB 1.9 ng/ml Creatine Kinase MB Ratio Troponin I 0.282 ng/ml Assessment and Plan This is a 51-year-old male with past medical history of hypertension, obesity, urethral stricture requiring self catheterization twice daily, who presented initially to [facility] with the complaint of shortness of breath on . At that time he reported his symptoms of shortness of breath with minimal activity started on 11/06. BAL with Possible Anterior Myocardial Infarction S/P Cardiac Catheterization: - Troponins mildly elevating from 0.211 to 0.282 - ASA 81 mg daily Acute Mixed Systolic and Diastolic CHF: - Echo - EF 30-35% and grade II diastolic dysfunction - Metoprolol 50 mg BID, Lisinopril 5 mg daily, and Lasix 20 mg daily - Would benefit from adequate diuresis in setting of CHF and CXR findings HTN: - As above New Onset T2DM: A1c 10.7 - Use SSI at this time - Discussed options with patient and was looking up homeopathic remedies which expressed that I could not recommend those options - Question a compliance issue will be present as he did D/C his Lisinopril and Metoprolol for the last 6 weeks -- May benefit from initiating Glyburide 2.5-5 mg daily and have him follow- up with PCP in [place] - would not want to cause hypoglycemia as 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 stay due to: ambulation difficulties Discharge planning: home
--- NOTE | 2016-11-10 12:31 | Cardiology Consultation ---
Cardiology Consultation Date of Service Nov 10, 2016. Cardiology Consultation cardiology consultation: The patient was seen and examined by me yesterday. He was also seen and examined by me this morning is intensive care unit room. The patient presented to the emergency department yesterday by EMS. Developed acute dyspnea at rest associated with lightheadedness, dyspnea, near-syncope, and impending sense of doom. No complaints of chest pain or other anginal type pains. Patient states did that in the 3 days prior to admission he had been experiencing orthopnea. He was sleeping almost upright because of the dyspnea. was also experiencing episodes of dyspnea at rest lasting for several minutes. Was also experiencing new onset dyspnea on exertion walking only several feet. The patient has a longstanding history of hypertension for at least 18 years. This was treated with metoprolol and lisinopril. Admitted to being noncompliant with his medications. He was also noncompliant with a low- sodium diet. On arrival to the emergency department he was not complaining of any chest pain or other anginal type pains. He was complaining of dyspnea. Was found to be hypertensive. His electrocardiogram was abnormal. An electrocardiogram performed in the field revealed ST segment elevations V2-V4, inverted T-waves V2-V6. A repeat electrocardiogram performed in the emergency department showed similar findings. Because of his pre admission symptoms and abnormal electrocardiogram it was felt that an acute anterior myocardial infarction could not be excluded. It was recommended to the patient that he undergo emergency cardiac catheterization and possible coronary intervention if indicated. The procedure, risks, benefits, and alternatives of cardiac catheterization and coronary intervention were discussed with him. He consented to the procedure. He was then brought to the cardiac catheterization laboratory. In addition to the above complaints the patient also complained of episodes of palpitations over the past 3 days. These last up to 1 minute. Sensed as a forceful and rapid heart rate. Associated lightheadedness. No focal motor weakness. No fevers or chills. No abdominal pain or nausea. No symptoms of GI bleeding. Stable nocturia 3 times per night. No history of sleep apnea. No abdominal pain or nausea. Good appetite. History of urethral stricture. He occasionally needs to self-catheterize himself. Over the past few days he has been having episodes of an aching occipital headache. This can last for several minutes at a time. No visual changes. He does not weigh himself daily. He has not noted any increase in his abdominal girth. No peripheral edema. No claudication type symptoms. On my exam of the patient in the emergency department he had no manifestations of congestive heart failure. He was hypertensive. Today the patient states that he has no dyspnea. He continues without any chest pain. Was able to sleep well overnight. No orthopnea or PND. No fevers or chills. No pulmonary, GI, or urinary complaints. No bleeding complaints. Mild tenderness at his right radial catheterization site. No cerebrovascular complaints. No leg pain. No swelling of his legs. Palpitations since admission. Mild postural lightheadedness when he got up to go to the bathroom. This lasted only a few seconds. No syncope. past medical history: Hypertension for least 18 years. Noncompliant with medications and low-sodium diet. Dyslipidemia. Hyperglycemia. Nephrolithiasis. Urethral stricture. Social history: The patient is a . He lives in [place]. 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 Two children who live in [place]. Family history: No family history of premature coronary artery disease. Review of systems: As above. Ten point review of systems otherwise negative. Allergies: No known drug allergies Cardiac catheterization findings: Catheterization site: 6 [place] glide sheath right radial artery. Catheters: 6 [place] brachial 3.5 diagnostic catheter for right and left coronary angiography. 5 [place] pigtail catheter for left heart catheterization and left ventricular angiography. 6 [place] EBU 3.75 guide catheter for performance of FFR of mid LAD stenosis. FFR protocol: After the pressure wire was calibrated and normalized it was advanced into the LAD with the transducer past the mid LAD stenosis. IFR was measured. Intravenous adenosine was then given a dose of 180 micrograms/ kilogram per minute for 2 minutes. FFR measurements were recorded. Follow-up angiography was then performed with the pressure wire in place and then withdrawn. Left ventricular angiography and left heart catheterization were performed following performance of FFR of the LAD. Hemostasis: Terumo TR band. Complications: None. Findings: Fluoroscopy did not reveal any significant coronary calcifications. The coronary circulation was right dominant. The left main coronary artery was a large caliber vessel without obstructive disease. It gave rise to medium caliber left anterior descending and left circumflex coronary arteries. The proximal LAD had a long 20 percent stenosis. The LAD then gave rise to a very small caliber and short 1st diagonal artery. It then gave rise to a long small caliber 2nd diagonal artery. The 2nd diagonal had 10-20 percent proximal and mid segment stenoses. Immediately following this diagonal the mid LAD had a 30- 50 percent stenosis. In the [place] caudal view the stenosis had a lucent appearance. The remainder of the mid and distal LAD had only minor luminal irregularities. The distal LAD terminated at the apex of the heart as a very small caliber vessel. IFR of the mid LAD stenosis was 0.91. FFR of the mid LAD stenosis following administration of intravenous adenosine was 0.85. Follow -up angiography after performance of FFR revealed no evidence of dissection, thrombus, perforation, or distal embolic event. LAD GOLD 3 flow prior to FFR. LAD GOLD 3 flow following FFR. The proximal circumflex had 0-10 percent stenosis. The early mid circumflex gave rise to a bifurcating medium caliber marginal artery which had a 10-20 percent proximal stenosis. Following the origin of the marginal the circumflex terminated in the atrioventricular groove as a small caliber vessel. The right coronary artery was a large caliber vessel. 0-10 percent stenoses in proximal, mid, and distal RCA. Distal RCA gave rise to a medium caliber posterior descending artery. The PDA had a 20 percent mid segment stenosis. the distal RCA gave rise to a long medium caliber bifurcating posterolateral artery. This vessel had a 20 percent stenosis prior to the bifurcation. Left ventricular angiography performed from the 30 degree right anterior oblique projection revealed global hypokinesis of all segments of the left ventricle. No mitral regurgitation. Calculated LV ejection fraction 35 percent. LV angiography had 1st been attempted with a hand injection of contrast dye. This provided inadequate visualization of the left ventricle. LV angiography was then repeated with a power injection of contrast dye. The left ventricular end-diastolic pressure was elevated prior to and following LV angiography. Following the administration of intra arterial nitroglycerin the left ventricular end diastolic pressure decreased. Current medications: Pantoprazole 40 milligrams p.o. daily, aspirin 81 milligrams daily, lisinopril 5 milligrams daily, furosemide 20 milligrams daily , simvastatin 80 milligrams daily, metoprolol succinate ER 50 milligrams b.i.d. , sliding-scale insulin, nitroglycerin ointment 1 inch q.6 hours. Physical exam today shows the patient to be in no distress. Vital signs this morning with oral temperature 36.6. Pulse 80. Blood pressure 131/88. Pulse oximetry 91 percent. Head: Normal. Eyes: Pupils equal and round. Anicteric. Conjunctiva normal. No xanthelasma. Neck: No jugular venous distention. Carotids 2/2 bilaterally. Normal upstroke. No bruits. Lungs: Normal respiratory effort. Decreased breath sounds at the bases. Scant bibasilar rales. No wheezes. Heart: PMI not palpable. No lifts or heaves. Regular rate and rhythm. S1-S2 normal. No S3 or S4. 2/6 systolic murmur at the apex. No diastolic murmur or rub. Abdomen: Soft. Nontender. No palpable masses or organomegaly. No Bruits. Normal bowel sounds. Extremities: Right radial catheterization site without bleeding. Right radial pulse strongly palpable. No evidence of arterial insufficiency in right hand. No Pretibial edema or calf tenderness. No cyanosis or clubbing. Pulses: Distal pulses all extremities palpable. Neurologic: Alert and oriented x3. Motor grossly intact. Psychiatric: Affect is normal. Chest x-ray yesterday revealed increased heart size. Pulmonary vascular congestion and increased interstitial markings. Electrocardiogram today with sinus rhythm, slight ST elevation in V2-V4, left ventricular hypertrophy, T- wave inversion in 1, aVL, V2-V6. Echocardiogram today with severe left ventricular hypertrophy. Moderate global hypokinesis of the left ventricle. LV ejection fraction 35 percent. Mild mitral regurgitation. Trace tricuspid and pulmonic regurgitation. Mild pulmonary hypertension. Normal right ventricular systolic function. Moderate left atrial dilatation. Small pericardial effusion without evidence of cardiac tamponade. INR yesterday 1.0. PTT 25.7. Peak troponin I thus far 0.282. Metabolic profile today with sodium 142, chloride 105, potassium 3.5, carbon dioxide 32, BUN 21, creatinine 1.2, random glucose 160. Magnesium 2.2. Hemoglobin 14.0, hematocrit 41.8, platelet count 192. Hemoglobin A1c is 10.7. Lipid profile has not as yet been performed on this admission. Assessment: 1. Acute combined systolic and diastolic heart failure. 2. Moderate left ventricular systolic dysfunction. Severe LVH. Suspect hypertensive cardiomyopathy. 3. Hypertension, dyslipidemia, and diabetes mellitus. 4. Noncompliance with medications and diet. 5. Cardiac catheterization yesterday with moderate mid LAD stenosis. Subsequent FFR measurement of the stenosis showed it to not be physiologically significant. 6. No vascular complications right radial catheterization site. 7. Evidence of pulmonary vascular congestion on exam today. 8. Hypertension. Blood pressure elevated today. 9. Complaint of palpitations at the time of admission. No complaint of palpitations since admission. Monitor history since admission reviewed by me. No arrhythmias noted. 10. No cerebrovascular or peripheral vascular complaints. 11. Normal right ventricular systolic function on echo today. No evidence on exam of deep venous thrombosis. Do not suspect an acute pulmonary embolus contributing to his current clinical condition. His symptoms at the time of presentation were consistent with new onset congestive heart failure. 12. Dyslipidemia. Lipid profile not checked on this admission as yet. He was not on any medications for dyslipidemia at the time of admission. Recommendations: 1. Increase lisinopril dose to 10 milligrams daily. 2. Continue metoprolol succinate and aspirin. 3. Discontinue simvastatin 80 milligrams daily. This higher dose of simvastatin is associated with increased adverse effects. In light of his coronary artery disease and diabetes a maximum dose of atorvastatin 80 milligrams or rosuvastatin 40 milligrams is indicated. 3. Management of diabetes mellitus by the hospitalist service. 4. The patient will need close follow-up on returns to [place]. If his LV function does not improve on maximum doses of beta-jorge and BENNY-inhibitor therapy consideration would need to be given to insertion of an ICD. 5. The patient should be given a complete copy of his hospital chart at the time of discharge. Should also be given disc containing his cardiac catheterization images, echo images, and chest x-ray. 6. 2 grams sodium per day diet. Low saturated fat diet. Diabetic diet. Thank you for asking me to see this patient in Cardiology consultation.
[2016-11-10 13:09] LABS: CHOLESTEROL/HDL RATIO 5.1
[2016-11-11] VITALS (9 sets, daily range): BP systolic 113–168; BP diastolic 67–115; PULSE 70–81; TEMP 36.4–36.8; O2SAT 92–99; Ht 170.2 cm; Wt 115.6 kg
[2016-11-11] MEDS: NITROGLYCERIN OINT 2% 1GM PACKET EXT SCH ×5 (00:16→23:18)
[2016-11-11 05:41] LABS: BASO % 0.2 %; BASO ABS # 0.02 K/uL (0-0.2); COMPLETE YES; EOS % 1.7 %; HEMATOCRIT 42.4 % (42-52); IG% 0.5 %; LYMPH % 21.6 %; LYMPH ABS # 2.05 K/uL (1.2-3.4); MEAN CELL VOLUME 86.9 fL (80-100); MEAN CORPUSCULAR HEMOGLOBIN 28.7 pg (25-34); MEAN PLATELET VOLUME 11.6 fL (7.4-10.4); MONO % 9.8 %; NEUT % 66.2 %; PLATELET COUNT 184 K/uL (130-400); RED BLOOD COUNT 4.88 M/uL (4.7-6.1); WHITE BLOOD COUNT 9.47 K/uL (4.8-10.8)
[2016-11-11 06:08] LABS: BUN/CREATININE RATIO 16.1 (10-20); CREATININE 1.1 mg/dl (0.60-1.40); MAGNESIUM 2.2 mg/dl (1.8-2.4); POTASSIUM 3.8 mmol/L (3.5-5.1)
[2016-11-11 06:09] LABS: PHOSPHORUS 4.5 mg/dl (2.5-4.9)
[2016-11-11 07:01] LABS: CALCIUM 8.9 mg/dl (8.5-10.1)
[2016-11-11] MEDS: LISINOPRIL 5 MG TAB PO SCH (07:39)
[2016-11-11] MEDS: FUROSEMIDE 20 MG TAB PO SCH (07:40)
[2016-11-11] MEDS: PANTOprazole SOD 40 MG TAB PO SCH (07:40)
[2016-11-11] MEDS: METOPROLOL SUCC 50MG EXT REL TAB PO SCH ×2 (07:40→20:33)
[2016-11-11] MEDS: ATORVASTATIN 40 MG TAB PO SCH (07:41)
[2016-11-11] MEDS: ASPIRIN 81 MG ECTAB PO SCH (07:41)
[2016-11-11] MEDS: INSULIN ASPART 100 UNITS/ML 3 ML PEN SC SCH ×4 (08:38→20:27)
[2016-11-11] MEDS ORDERED: FUROSEMIDE INJ 40 MG in SYRINGE 0 ML IV ONE (09:30)
[2016-11-11] MEDS ORDERED: LISINOPRIL 10 MG TAB PO ONE (09:30)
--- NOTE | 2016-11-11 12:39 | Hospitalist Progress Note ---
Hospitalist Progress Note Date of Service Nov 11, 2016. Subjective Pt evaluation today including: conversation w/ patient, physical exam, chart review, lab review, review of studies, review of inpatient medication list Patient seen and evaluated. No tele events overnight. Patient reporting improvement in breathing and currently on RA. Received IV Lasix and reporting frequent urination. Is in agreement to start oral diabetic medications. Due to insurance he may have issues obtaining prescriptions in [place]. Did discuss medication on the $4 list which the medications we would initiate are available. He is in agreement to start these medications. 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 No pain at catheterization arm. Does report chronic numbness/tingling of R digit tips. States his 5th finger tip had new onset numbness/tingling but denies extension up arm. -- Pulses are 2+ in radial and ulnar vessels. Cap refill is immediate Constitutional: No fever, No chills Eyes: No worsening of vision ENT: No nasal symptoms, No sore throat, No trouble swallowing Respiratory: + dyspnea on exertion, No cough, No dyspnea at rest Cardiovascular: No chest pain, No palpitations Abdomen: No pain, No nausea, No vomiting, No diarrhea, No constipation Musculoskeletal: No swelling, No calf pain Male : + urinary frequency, No dysuria Neurologic: + numbness/tingling (R digit tips) Skin: No rash Medications Current Inpatient Medications Medications (Trade) Dose Ordered Sig/Brianda Route Start Time Stop Time Status Last Admin Dose Admin Nitroglycerin (Nitroglycerin 2% Oint) 1 inch Q6 EXT 11/09/16 19:15 12/09/16 19:14 11/11/16 06:39 1 INCH Pantoprazole Sodium (Protonix Tab) 40 mg DAILY PO 11/10/16 09:00 12/10/16 08:59 11/11/16 07:40 40 MG Morphine Sulfate (MoRPHine SULFATE INJ) 2 mg Q2H PRN IV 11/09/16 17:45 11/23/16 17:44 Nitroglycerin (Nitrostat Tab) 0.4 mg Q5M PRN SL 11/09/16 18:15 12/09/16 18:14 Acetaminophen (Tylenol Tab) 650 mg Q4H PRN PO 11/09/16 18:15 12/09/16 18:14 11/10/16 11:13 650 MG Sodium Chloride 250 ml @ 999 mls/hr Q16M PRN IV 11/09/16 18:08 12/09/16 18:07 Atropine Sulfate (Atropine Sulfate 0.1MG/Ml Inj) 0.6 mg PRN PRN IV 11/09/16 18:15 12/09/16 18:14 Aspirin (Ecotrin Tab) 81 mg QAM PO 11/10/16 09:00 12/10/16 08:59 11/11/16 07:41 81 MG Metoprolol Succinate (Toprol Xl Tab) 50 mg BID PO 11/09/16 21:00 12/09/16 20:59 11/11/16 07:40 50 MG Furosemide (Lasix Tab) 20 mg QAM PO 11/10/16 09:00 12/10/16 08:59 11/11/16 07:40 20 MG Insulin Aspart (novoLOG ASPART) SLIDING SCALE PARAMETER ACHS SC 11/09/16 21:00 12/09/16 20:59 11/11/16 08:38 1 UNITS Glucose (Glucose 40% Gel) 15-30 GRAMS 15 GRAMS... UD PRN PO 11/09/16 20:15 12/09/16 20:14 Glucose (Glucose Chew Tab) 4-8 Tablets 4 Tabl... UD PRN PO 11/09/16 20:15 12/09/16 20:14 Dextrose (Dextrose 50% 50ML Syringe) 25-50ML OF 50% DW IV FOR... UD PRN IV 11/09/16 20:15 12/09/16 20:14 Glucagon (Glucagon Inj) 1 mg UD PRN SQ 11/09/16 20:15 12/09/16 20:14 Lisinopril (Zestril Tab) 10 mg QAM PO 11/11/16 09:00 12/10/16 08:59 11/11/16 07:39 10 MG Atorvastatin Calcium (Lipitor Tab) 80 mg QAM PO 11/11/16 09:00 12/11/16 08:59 11/11/16 07:41 80 MG Metformin HCl (Glucophage Tab) 500 mg BIDM PO 11/11/16 16:45 12/11/16 16:44 Thiamine HCl (Vitamin B-1 Tab) 100 mg QAM PO 11/12/16 09:00 12/12/16 08:59 Objective Vital Signs Date Time Temp Pulse Resp B/P (MAP) Pulse Ox O2 Delivery O2 Flow Rate FiO2 11/11/16 12:00 Nasal Cannula 11/11/16 11:57 36.6 81 18 133/78 (96) 95 11/11/16 08:47 166/104 (124) 11/11/16 08:00 Nasal Cannula 11/11/16 07:12 77 18 150/107 (121) 98 Nasal Cannula 2.0 11/11/16 07:11 36.4 81 18 168/115 (132) 99 Nasal Cannula 2.0 11/11/16 04:13 36.8 74 18 122/83 (96) 96 Nasal Cannula 2.0 11/11/16 04:00 Nasal Cannula 2.0 11/10/16 23:59 Nasal Cannula 2.0 11/10/16 23:55 36.4 74 18 112/72 (85) 98 Nasal Cannula 11/10/16 20:00 94 Room Air 11/10/16 19:07 36.6 76 16 148/90 (109) 97 Nasal Cannula 2.0 11/10/16 16:00 94 Room Air 11/10/16 15:47 36.5 75 16 135/73 (93) 94 Room Air 2.0 Physical Exam General Appearance: WD/WN, no apparent distress, + obese Eyes: sclerae normal ENT: hearing grossly normal (with hearing aids) Neck: supple, no JVD, trachea midline Respiratory/Chest: normal breath sounds, no respiratory distress, no accessory muscle use, + crackles (minimal in bases bilat) Cardiovascular: regular rate, rhythm, no gallop, no murmur Abdomen: normal bowel sounds, non tender, soft Extremities: no pedal edema, no calf tenderness, + pertinent finding (2+ pulses in radial and ulnar at site of cardiac cath; adequate cap refill) Neurologic/Psychiatric: alert, oriented x 3 Skin: normal color, warm/dry Laboratory Results Last 24 Hours Test 11/10/16 16:19 11/10/16 20:36 11/11/16 05:08 11/11/16 06:55 Bedside Glucose 147 mg/dl 122 mg/dl 165 mg/dl White Blood Count 9.47 K/uL Red Blood Count 4.88 M/uL Hemoglobin 14.0 g/dL Hematocrit 42.4 % Mean Corpuscular Volume 86.9 fL Mean Corpuscular Hemoglobin 28.7 pg Mean Corpuscular Hemoglobin Concent 33.0 g/dl Platelet Count 184 K/uL Mean Platelet Volume 11.6 fL Neutrophils (%) (Auto) 66.2 % Lymphocytes (%) (Auto) 21.6 % Monocytes (%) (Auto) 9.8 % Eosinophils (%) (Auto) 1.7 % Basophils (%) (Auto) 0.2 % Neutrophils # (Auto) 6.26 K/uL Lymphocytes # (Auto) 2.05 K/uL Monocytes # (Auto) 0.93 K/uL Eosinophils # (Auto) 0.16 K/uL Basophils # (Auto) 0.02 K/uL RDW Standard Deviation 42.7 fL RDW Coefficient of Variation 13.5 % Immature Granulocyte % (Auto) 0.5 % Immature Granulocyte # (Auto) 0.05 K/uL Sodium Level 144 mmol/L Potassium Level 3.8 mmol/L Chloride Level 109 mmol/L Carbon Dioxide Level 29 mmol/L Anion Gap 6.0 mmol/L Blood Urea Nitrogen 18 mg/dl Creatinine 1.10 mg/dl Est Creatinine Clear Calc Drug Dose 96.5 ml/min Estimated GFR () 89.6 Estimated GFR (Non- 77.3 BUN/Creatinine Ratio 16.1 Random Glucose 146 mg/dl Calcium Level 8.9 mg/dl Phosphorus Level 4.5 mg/dl Magnesium Level 2.2 mg/dl Test 11/11/16 11:15 Bedside Glucose 200 mg/dl Assessment and Plan This is a 51-year-old male with past medical history of hypertension, obesity, urethral stricture requiring self catheterization twice daily, who presented initially to [facility] with the complaint of shortness of breath on . At that time he reported his symptoms of shortness of breath with minimal activity started on 11/06. BAL with NSTEMI of Anterior Myocardial Infarction S/P Cardiac Catheterization: - No intervention necessary - ASA 81 mg daily Acute Mixed Systolic and Diastolic CHF: - Echo - EF 30-35% and grade II diastolic dysfunction - Metoprolol 50 mg BID, Lisinopril 10 mg daily, and Lasix 20 mg daily - Atorvastatin 80 mg daily - Cardiology following - recommendations reviewed - adjusted medications as listed above -- Given Lasix IV x 1 dose today - patient is beginning to diurese HTN: - As above New Onset T2DM: A1c 10.7 - Use SSI at this time and add Metformin 500 mg BID - Conflict with insurance and coverage and discussed $4 list of medications and will provide coverage until he gets back to [place] - Reiterated importance of medication compliance with DM and cardiac medications and he agrees Urethral Stricture with Intermittent Straight Cath BID: - States he takes HCTZ for this and does report compliance with this medication Code Status: FULL RESUSCITATION 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 -- Will likely need establishment with a [employer] Developer in [place] and will defer to patient and PCP - Employer to provide a ride for patient to [place] tomorrow - will continue to diurese and monitor on RA and likely D/C tomorrow Discharge planning: home
[2016-11-11] MEDS: ACETAMINOPHEN 325 MG TAB PO PRN (13:20)
[2016-11-11] MEDS: METFORMIN HCL 500 MG TAB PO SCH (17:25)
--- NOTE | 2016-11-11 18:48 | Cardiology Progress Note ---
Cardiology Progress Note Date of Service Nov 11, 2016. Cardiology Progress Note Cardiology progress note November 11, 2016. The patient was seen and examined by me this morning in the telemetry unit. The patient states that this morning he developed dyspnea. He feels the same as he did at the time of admission. Denies any chest pain. No palpitations. Did have sensation of lightheadedness when he walk from the bed to the commode. He had no orthopnea overnight. He denies any abdominal pain or nausea. No fevers or chills. No cough. No wheezing. No complaints of leg pain. No pain at his right radial catheterization site today. Intake and output yesterday 1055/1000. Vital signs this morning with pulse 77. Blood pressure taken by me 134/98. Pulse oximetry on supplemental nasal cannula oxygen 96 percent. Physical exam shows him to be mildly dyspneic. Neck: No obvious jugular venous distention. Carotid arteries 2/2 bilaterally. Normal upstroke. Lungs: Decreased breath sounds at both bases. Bibasilar rales. No rhonchi or wheezing.: Regular rate and rhythm. S1-S2 normal. No S3 or S4. No diastolic murmur or rub. 2/6 systolic murmur at apex. Abdomen: Soft. Nontender. No palpable masses or organomegaly. No bruits. Normal bowel sounds. Extremities: Right radial catheterization site without bleeding or hematoma. Right radial pulse strongly palpable. Arterial insufficiency in right hand. No pretibial edema. No cyanosis or clubbing. Neurologic: Alert and oriented x3. Motor grossly intact. Psychiatric: Affect is apprehensive. Medications this morning were lisinopril 10 milligrams daily a.m. (he was given additional 10 milligrams this morning), atorvastatin 80 milligrams daily, pantoprazole 40 milligrams daily, aspirin 81 milligrams daily, furosemide 20 milligrams p.o. daily, metoprolol succinate ER 50 milligrams b.i.d., NovoLog sliding scale insulin, nitroglycerin ointment 1 inch q.6 hours, and several p.r.n. medications. Allergies: No known drug allergies. Labs today with sodium 144, potassium 3.8, chloride 109, carbon dioxide 29, BUN 18, creatinine 1.10, magnesium 2.2. Hemoglobin 14.0, hematocrit 42.4, platelet count 184. Electrocardiogram today with normal sinus rhythm, borderline voltage for LVH, T-wave inversions 1, aVL, V3-V6 consistent with LVH and/or ischemia. Assessment: 1. Admission with dyspnea at rest. Devine to be secondary to acute combined systolic and diastolic heart failure. Echocardiogram on this admission with moderate LV systolic dysfunction. Severe left ventricular hypertrophy. 2. No significant diuresis since admission. Increased dyspnea this morning. Evidence of pulmonary vascular congestion on exam this morning. Despite the dyspnea his oxygen saturation on supplemental nasal cannula oxygen is good. 3. Moderate mid LAD stenosis on emergency cardiac catheterization November 09, 2016. FFR measurement across this lesion should be not physiologically significant. 4. Severe hypertension. 5. Diabetes mellitus. Markedly elevated hemoglobin A1c. He was on medical therapy for his diabetes at the time of admission. 6 Dyslipidemia. He was on no medical therapy for dyslipidemia time of admission. 7. Complaints of palpitations prior to admission. No palpitations since admission. No significant arrhythmia is noted on monitoring. Monitor over the past 24 hours of sinus rhythm with occasional premature ventricular beat. 8. Mildly elevated troponin I. Suspect secondary to demand ischemia. Was markedly hypertensive on admission. Has severe LVH. 9. No vascular complications right radial catheterization site. Recommendations: 1. Intravenous furosemide 40 milligrams IV this morning. 2. Increase daily oral furosemide to 40 milligrams daily. 3. Increase lisinopril to 20 milligrams daily. 4. Continue aspirin, atorvastatin, and metoprolol. 5. Reassess renal function and potassium in a.m.. Consider adding spironolactone to medical regimen based on tomorrow's labs. 6. 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 Should be given a complete copy of the records from this admission including images of his chest x-ray, echo, and cardiac catheterization. 7. If his LV systolic function does not improve with maximal medical therapy consideration should be given in the future to implantation of an ICD. This echocardiogram would need to be performed when he returns to [place]. decision for implantation of an ICD would be based upon results of the repeat echo and recommendations of his [place] physicians.
[2016-11-12] VITALS (7 sets, daily range): BP systolic 113–142; BP diastolic 77–90; PULSE 73–84; TEMP 36.6–36.7; O2SAT 92–95
[2016-11-12] MEDS: ACETAMINOPHEN 325 MG TAB PO PRN (01:03)
[2016-11-12] MEDS: NITROGLYCERIN OINT 2% 1GM PACKET EXT SCH (05:42)
[2016-11-12 07:00] LABS: BASO % 0.2 %; BASO ABS # 0.02 K/uL (0-0.2); COMPLETE YES; EOS % 1.1 %; HEMATOCRIT 44.7 % (42-52); IG% 0.4 %; LYMPH % 20.2 %; MEAN CELL VOLUME 86.6 fL (80-100); MEAN CORPUSCULAR HEMOGLOBIN 29.7 pg (25-34); MEAN CORPUSCULAR HGB CONC 34.2 g/dl (32-36); MEAN PLATELET VOLUME 12.1 fL (7.4-10.4); MONO % 8.3 %; NEUT % 69.8 %; PLATELET COUNT 221 K/uL (130-400); RED BLOOD COUNT 5.16 M/uL (4.7-6.1); WHITE BLOOD COUNT 9.91 K/uL (4.8-10.8)
[2016-11-12 07:36] LABS: CALCIUM 9.6 mg/dl (8.5-10.1)
[2016-11-12 07:38] LABS: BUN/CREATININE RATIO 17.1 (10-20); CREATININE 1.3 mg/dl (0.60-1.40); MAGNESIUM 2.3 mg/dl (1.8-2.4); PHOSPHORUS 4.1 mg/dl (2.5-4.9); POTASSIUM 3.3 mmol/L (3.5-5.1)
[2016-11-12] MEDS: ASPIRIN 81 MG ECTAB PO SCH (07:54)
[2016-11-12] MEDS: METFORMIN HCL 500 MG TAB PO SCH ×2 (07:54→17:03)
[2016-11-12] MEDS: METOPROLOL SUCC 50MG EXT REL TAB PO SCH ×2 (07:54→20:51)
[2016-11-12] MEDS: FUROSEMIDE 20 MG TAB PO SCH (07:54)
[2016-11-12] MEDS: THIAMINE HCL 100 MG TAB PO SCH (07:54)
[2016-11-12] MEDS: ATORVASTATIN 40 MG TAB PO SCH (07:54)
[2016-11-12] MEDS: PANTOprazole SOD 40 MG TAB PO SCH (07:54)
[2016-11-12] MEDS: LISINOPRIL 5 MG TAB PO SCH (07:55)
[2016-11-12] MEDS: INSULIN ASPART 100 UNITS/ML 3 ML PEN SC SCH ×4 (08:02→20:50)
[2016-11-12] MEDS ORDERED: POTASSIUM CHLORIDE 10 MEQ TABCR PO ONE (08:30)
[2016-11-12] MEDS ORDERED: SPIRONOLACTONE 25 MG TAB PO ONE ×2 (09:15→10:00)
--- NOTE | 2016-11-12 10:03 | Cardiology Progress Note ---
Cardiology Progress Note Date of Service Nov 12, 2016. Cardiology Progress Note The patient was seen and examined by me this morning on the medical unit. He states that after diuresis yesterday morning he had resolution of his dyspnea. No further complaints of dyspnea since yesterday morning. Orthopnea or PND. No palpitations or syncope. Mild postural lightheadedness this morning when he arose from bed to go to the bathroom. This was a brief duration. No associated symptoms. No pain in his right radial catheterization site. No right hand pain. No GI complaints. No bleeding complaints. No pulmonary or urinary complaints. No cerebrovascular or peripheral vascular complaints. Medications this morning were furosemide 20 milligrams daily, thiamine 100 milligrams daily, metformin 500 milligrams b.i.d., lisinopril 10 milligrams daily, atorvastatin 80 milligrams daily, pantoprazole 40 milligrams daily, aspirin 81 milligrams daily, metoprolol succinate ER 50 milligrams b.i.d.. He had been on nitroglycerin ointment 1 inch q.6 hours. This has been ordered to be discontinued. Patient still has nitroglycerin ointment in place. Intake and output yesterday 855/1950. Vital signs this morning with oral temperature 36.7, pulse 73, blood pressure 131/82, pulse oximetry room air 95 percent. General appearance shows no distress. Appears well. Neck: No jugular venous distention. Lungs: Normal respiratory effort. Clear. No rales or wheezes. Heart: Regular rate and rhythm. S1-S2 normal. No S3 or S4. No rub. 2 /6 systolic murmur at the left lower sternal border and apex. Abdomen: Soft. Nontender. No palpable masses organomegaly. No bruits. Normal bowel sounds. Extremities: Right radial catheterization site without tenderness. No pretibial edema. Radial pulses strongly palpable. No evidence of arterial insufficiency right hand. No cyanosis or clubbing. Neurologic: Alert and oriented x3. Motor grossly intact. Psychiatric: Affect is normal. Labs this morning :sodium 140, potassium 3.3, chloride 104, carbon dioxide 30, BUN 22, creatinine 1.30, magnesium 2.3, random glucose 136. CBC with WBC 9.91, hemoglobin 15.3, hematocrit 44.7, platelet count 221. Assessment: 1. Moderate left ventricular systolic dysfunction. 2. Acute systolic and diastolic congestive heart failure on admission . Continued evidence of heart failure yesterday morning on exam and by symptoms. Resolution with diuresis yesterday. This is after intravenous furosemide 40 milligrams. No evidence of heart failure on exam today. Resolution of dyspnea. 3. Hypertension. Blood pressure improved today compared to yesterday morning. 4. Hypokalemia secondary to diuresis. 5. No significant arrhythmias noted on this admission. 6. Elevated troponin I. Secondary to demand ischemia. On admission he was hypertensive. Echocardiography shows severe LVH. Emergency cardiac catheterization performed on day of admission revealed a moderate mid LAD stenosis. FFR measurement of the stenosis showed it to be not physiologically significant. Plan: 1. Increase oral furosemide to 40 milligrams daily. 2. The patient received potassium supplementation already this morning. 3. Start spironolactone 25 milligrams daily. 4. Continue metoprolol. At time of discharge can be changed to metoprolol succinate ER 100 milligrams daily. 5. Continue aspirin and atorvastatin. Continue lisinopril. 6. I put an order in for the chart to be copied. The patient should take a copy of his chart with him. 7. The patient needs medical and cardiology follow-up when he returns to [place]. He should have a metabolic profile checked next week.
[2016-11-12] MEDS ORDERED: SPR25 PO (10:16)
[2016-11-12] MEDS ORDERED: LSX40 PO (10:16)
[2016-11-12] MEDS ORDERED: LSN20 PO (10:16)
[2016-11-12] MEDS ORDERED: ASPEC81 PO (10:16)
[2016-11-12] MEDS ORDERED: POTA1TAB97 PO (10:16)
[2016-11-12] MEDS ORDERED: GLC500 PO (10:16)
[2016-11-12] MEDS ORDERED: LPT40 PO (10:17)
--- NOTE | 2016-11-12 14:27 | Discharge Instructions ---
Discharge Instructions Date of Service Nov 12, 2016. Admission Reason for Admission: Acute Anterior Wall Mi Discharge Discharge Diagnosis / Problem: Acute heart attack, acute systolic heart failure , diabetes type II Discharge Goals Goal(s): Improve function, Improve disease control, Diagnostic testing (repeat echocardiogram in 3 months) Activity Recommendations Activity Limitations: resume your previous activity Lifting Limitations: none Exercise/Sports Limitations: as tolerated May Resume Sexual Activity: when tolerated Shower/Bathe: no limitations Driving or Machine Use: until after follow up with primary care doctor in [place] . Instructions / Follow-Up Instructions / Follow-Up Medications: - METOPROLOL: 50mg twice a day, treats blood pressure but also proven to improve function with systolic heart failure and treat heard disease - LISINOPRIL: 20mg daily, again, proven to improve heart function in systolic heart failure - LASIX: 40mg daily, helps control fluid and prevent volume overload associated with heart failure - SPIRONOLACTONE: 25mg daily, mild diuretic that has also been proven to improve function with systolic heart failure - LIPITOR: 80mg daily, cholesterol lowering medications to prevent future heart attack - METFORMIN: 500mg twice a day, controls diabetes, can have some diarrhea ( common side effect), dose should be titrated up to 1000mg twice a day in next 2 weeks if you tolerate - ASPIRIN: 81mg daily, prevents heart attack Diagnoses - NSTEMI: mild heart attack, you did not require any stents, most significant lesion was 50% and thus you can be treated medically with Lipitor, aspirin, metoprolol use Nitro for any chest pain or pressure that you get with exertion if you get chest pain or pressure that will not go away, go to emergency room - Systolic heart failure: you have moderate heart failure with EF of 35%, normal is 55-60% we have continued or started several medications to help improve heart function, specifically metoprolol, lisinopril, spironolactone and lasix you need to take these, compliance is very important if you want heart to improve you should follow up with your primary care doctor in [place] and request referral very soon to a associate theatre professor who can manage your disease Dr. Lopez recommends a repeat echocardiogram in 3 months and if EF is still 35 % then you may require a defibrillator, but that needs to be discussed with associate theatre professor in [place] - Diabetes type II: new diagnosis, Hb A1c is 10, you have been started on Metformin 500mg twice a day you need to be titrated up to to 1000mg twice a day as long as you can tolerate it (common side effects are GI issues) follow a low carbohydrate diet, avoid excess complex carbohydrates like breads and pastas and limit sweets you will need to discuss further management with your primary care doctor will likely need additional medications to get your HbA1c to less than 7.5 which is the goal with concurrent coronary disease Call your Primary Care doctor if any of the following symptoms or problems start or get worse: * Shortness of breath or difficulty breathing * Wake up at night short of breath * Chest pain * Cough * Swelling of your hands, feet, or legs * More fatigued or tired with your normal activity * Palpitations - sudden fast heart beats WEIGHT * Weigh yourself every morning after using the bathroom. * Use the same scale. * Wear the same amount of clothing. * Write your weight down on a chart. * Call your Primary Care doctor if you gain more than 2-3 pounds in 1-2 days. MEDICATIONS * Use this discharge instruction sheet for medication instructions. * Take your medications at the time your doctor ordered. * Do not skip a dose of your medicines. * If you miss a dose of medicine, take it as soon as possible, but DO NOT DOUBLE A DOSE. * Read your medicine information when you get home. * Know all of the side effects of your medicine. If in doubt, ask your pharmacist * Call your Primary Care doctor's office if you have any side effects. * Be sure all of your doctors know what medicine and herbs you take (including cold, flu, and herbal medicine). Take the following with you to your follow-up doctor appointments: * Weight Chart * Medication List * List of questions Do not drink excessive alcohol, beer or wine. Current Hospital Diet Patient's current hospital diet: AHA Diet (Heart Healthy), Diabetes Type 2 Diet , Low Sodium Diet (2gm Na) Discharge Diet Recommended Diet: AHA Diet (Heart Healthy), Diabetes Type 2 Diet Fluid Restriction: 2000 ml (8 cups) Procedures Procedures Performed: Heart catheterization 11/09 - 50% stenosis in LAD, mild disease in other arteries, no stents placed Pending Studies Studies pending at discharge: no Laboratory Results Hemoglobin A1c Test 11/09/16 16:37 Range/Units Estimated Average Glucose 260 mg/dl Hemoglobin A1c 10.7 H 4.5-5.6 % Lipid Panel Test 11/10/16 09:32 Range/Units Triglycerides Level 276 H 0-150 mg/dl Cholesterol Level 183 0-200 mg/dl HDL Cholesterol 36 mg/dl Cholesterol/HDL Ratio 5.1 LDL Cholesterol, Calculated 92 mg/dl Medical Emergencies . Who to Call and When: Call 911 or go to the Emergency Room if: * If at any time you feel your situation is an emergency * You have tightness or pain in your chest that does not go away with rest or Nitroglycerin * You are very short of breath even with rest . Non-Emergent Contact Non-Emergency issues call your: Primary Care Provider, [employer] Call Non-Emergent contact if: you have any medication questions . . "Provider Documentation" section prepared by Abdullahi Pope. . VTE Core Measure Inpt VTE Proph given/why not?: Unfractionated heparin DIEGO (Maisha Wilkins, [facility] [place] Drug Monitoring Program Search Results: no issues identified
--- NOTE | 2016-11-12 15:50 | Discharge Summary ---
Discharge Summary Date of Service Nov 12, 2016. 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 life educator Medication Reconciliation New Medications: Potassium Chloride (K-Tab) 20 Meq Tab 1 TAB PO DAILY for 30 Days, #30 TABS 3 Refills Aspirin (Aspirin EC Low Dose) 81 Mg Ectab 81 MG PO QAM, #30 TABS 3 Refills Atorvastatin (Atorvastatin Calcium) 40 Mg Tab 80 MG PO QAM, #60 TAB 3 Refills Furosemide (Furosemide) 40 Mg Tab 40 MG PO QAM, #30 TAB 3 Refills Lisinopril (Lisinopril) 20 Mg Tab 20 MG PO DAILY for 30 Days, #30 TABS 3 Refills Metformin HCl (Metformin HCl) 500 Mg Tab 500 MG PO BIDM, #60 TAB 3 Refills Spironolactone (Spironolactone) 25 Mg Tab 25 MG PO QAM, #30 TAB 3 Refills Continued Medications: Metoprolol Tartrate (Lopressor) (Lopressor) 50 Mg Tab 50 MG PO BID, TAB Discontinued Medications: Hctz/Lisinopril (Lisinopril/Hctz 20/25 Mg) 1 Ea Tab 1 TAB PO QAM, TAB Lisinopril (Zestril) 20 Mg Tab 20 MG PO DAILY, TAB Metoprolol Succ (Toprol Xl) (Toprol-Xl ) 100 Mg Tabcr 100 MG PO DAILY, TAB Metoprolol Succinate (Toprol Xl) 50 Mg Tabcr 50 MG PO DAILY, #30 TAB Discharge Exam Patient feeling well, reports that his brother coming up tonight from [place] to take him home tomorrow. Breathing stable. No chest pain. Eating well, urinating, moving bowels, ambulating Review of Systems: Constitutional: No fever, No chills, No sweats, No weight loss, No weakness , No fatigue, No problem reported Eyes: No worsening of vision, No eye pain, No redness, No discharge, No diplopia, No problem reported ENT: No hearing loss, No unusual epistaxis, No nasal symptoms, No sore throat, No tinnitus, No dental problems, No trouble swallowing, No problem reported Respiratory: No cough, No sputum, No wheezing, No shortness of breath, No dyspnea on exertion, No dyspnea at rest, No hemoptysis, No problem reported Cardiovascular: No chest pain, No orthopnea, No PND, No edema, No claudication, No palpitations, No problem reported Abdomen: No pain, No nausea, No vomiting, No diarrhea, No constipation, No GI bleeding, No problem reported Musculoskeletal: No joint pain, No muscle pain, No swelling, No calf pain, No problem reported Genitourinary - Male: No hematuria, No dysuria, No urinary frequency, No urinary urgency Neurologic: No memory loss, No paralysis, No weakness, No numbness/tingling , No vertigo, No balance problems, No problem reported Psychiatric: No depression symptoms, No anhedonism, No anxiety, No insomnia , No substance abuse, No problem reported Endocrine: No fatigue, No excessive thirst, No excessive urination, No problem reported Hematologic / Lymphatic: No abnormal bleeding/bruising, No clotting problems , No swollen lymph nodes, No night sweats, No problem reported Integumentary: No rash, No itch, No new/changing skin lesions, No color change, No bleeding, No problem reported Physical Exam: General Appearance: WD/WN, no apparent distress Eyes: normal inspection, EOMI, sclerae normal ENT: normal ENT inspection, hearing grossly normal, pharynx normal Neck: supple, no adenopathy, no JVD, trachea midline Respiratory/Chest: chest non-tender, lungs clear, normal breath sounds, no respiratory distress, no accessory muscle use Cardiovascular: regular rate, rhythm, no edema, no gallop, no JVD, no murmur , normal peripheral pulses Abdomen / GI: normal bowel sounds, non tender, soft, no organomegaly Extremities: normal inspection, no calf tenderness, normal capillary refill , no pedal edema, normal range of motion, non-tender, pelvis stable Neurologic/Psychiatric: 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 Cath showed 50% LAD lesion, mild disease otherwise, no stents needed. Found to have EF of 35%, new diagnosis of systolic heart failure. Also, noted to have an A1c of 10, new diagnosis of DM type II. - Acute diastolic and systolic heart failure: euvolemic now, breathing well, no pulmonary edema, acute component resolved will d/c on Lasix 40mg daily, lisinopril 20mg daily, metoprolol 50mg BID and spironolactone 25mg daily needs to get established with crocheter in [place] instructed to follow up with PCP and get a quick referral needs a repeat echocardiogram in 3 months on optimal medical therapy - Hypokalemia: d/c on KCl 20 mEq daily, this is to off set losses from Lasix lisinopril and spironolactone should also raise K - NSTEMI: continue Lipitor 80mg and aspirin, no intervention needed on heart cath, 50% LAD lesion, mild disease otherwise medical management only nitro PRN for chest pain - DM type II: new diagnosis, HbA1c 10, recommend Metformin and dietary changes initially said he would be compliant start Metformin 500mg BID while in the hospital, titrate dose upward as tolerated, can follow up with PCP suspect he'll require additional medications goal is 7.5 Total Time Spent: Greater than 30 minutes This includes examination of the patient, discharge planning, medication reconciliation, and communication with other providers. Discharge Instructions Please refer to the electronic Patient Visit Report (Discharge Instructions) for additional information. Follow-Up primary care physician in [place] in one week referral to crocheter [facility]
[2016-11-13] VITALS: O2SAT 95
[2016-11-13 06:52] LABS: BASO % 0.2 %; BASO ABS # 0.02 K/uL (0-0.2); COMPLETE YES; EOS % 1.2 %; HEMATOCRIT 47.1 % (42-52); IG% 0.4 %; LYMPH % 18.9 %; LYMPH ABS # 1.77 K/uL (1.2-3.4); MEAN CELL VOLUME 86.7 fL (80-100); MEAN CORPUSCULAR HEMOGLOBIN 29.3 pg (25-34); MEAN CORPUSCULAR HGB CONC 33.8 g/dl (32-36); MEAN PLATELET VOLUME 12.2 fL (7.4-10.4); NEUT % 70.3 %; PLATELET COUNT 223 K/uL (130-400); RED BLOOD COUNT 5.43 M/uL (4.7-6.1); WHITE BLOOD COUNT 9.38 K/uL (4.8-10.8)
[2016-11-13 07:21] VITALS: BP 119/90; PULSE 80; TEMP 36.7; O2SAT 95
[2016-11-13] MEDS: ATORVASTATIN 40 MG TAB PO SCH (07:30)
[2016-11-13] MEDS: ASPIRIN 81 MG ECTAB PO SCH (07:30)
[2016-11-13] MEDS: METOPROLOL SUCC 50MG EXT REL TAB PO SCH (07:30)
[2016-11-13] MEDS: LISINOPRIL 5 MG TAB PO SCH (07:30)
[2016-11-13] MEDS: THIAMINE HCL 100 MG TAB PO SCH (07:31)
[2016-11-13] MEDS: PANTOprazole SOD 40 MG TAB PO SCH (07:31)
[2016-11-13] MEDS: METFORMIN HCL 500 MG TAB PO SCH (07:31)
[2016-11-13 07:33] LABS: BUN/CREATININE RATIO 16.3 (10-20); CALCIUM 9.6 mg/dl (8.5-10.1); CREATININE 1.4 mg/dl (0.60-1.40); MAGNESIUM 2.4 mg/dl (1.8-2.4); PHOSPHORUS 3.8 mg/dl (2.5-4.9); POTASSIUM 3.8 mmol/L (3.5-5.1)
[2016-11-13] MEDS ORDERED: SPIRONOLACTONE 25 MG TAB PO SCH ×2 (09:00)
[2016-11-13] MEDS ORDERED: FUROSEMIDE 40 MG TAB PO SCH (09:00)
== END 2016-11-13 08:30 | disposition home or self-care (01) | DRG 280 ==
LOC: C.EDB 16:28 → C.MSICU 17:50 → ENRESERV 11-10 11:24 → C.2T 11-10 12:39 → ENRESERV 11-11 12:44 → C.MS2W 11-11 13:31
PROVIDERS: ADMIT Internal Medicine; ATTEND Internal Medicine
PROC: B2111ZZ Fluoroscopy of Multiple Coronary Arteries using Low Osmolar Contrast (ICD-10-PCS; principal; 2016-11-09 16:30)
PROC: B2151ZZ Fluoroscopy of Left Heart using Low Osmolar Contrast (ICD-10-PCS; principal; 2016-11-09 16:30)
PROC: 4A023N7 Measurement of Cardiac Sampling and Pressure, Left Heart, Percutaneous Approach (ICD-10-PCS; principal; 2016-11-09 16:30)
DX: I21.4 Non-ST elevation (NSTEMI) myocardial infarction (principal); I50.41 Acute combined systolic (congestive) and diastolic (congestive) heart failure; I11.0 Hypertensive heart disease with heart failure; E11.9 Type 2 diabetes mellitus without complications; E66.01 Morbid (severe) obesity due to excess calories; N35.9 Urethral stricture, unspecified; E87.6 Hypokalemia; Z79.899 Other long term (current) drug therapy; Z68.39 Body mass index [BMI] 39.0-39.9, adult